=== PATIENT | female | born 1930 | race Caucasian/White ===

== ENCOUNTER 2018-09-05 01:36 | Inpatient (IN) | payer OTHER ==
[~2018-09-05] VITALS: Ht 154.9 cm; Wt 63.5 kg
[2018-09-05] VITALS (8 sets, daily range): BP systolic 93–146; BP diastolic 50–97
--- NOTE | ~2018-09-05 | 2DMMODE ---
[facility] [address] [place] [address] 2 D/M-MODE ECHOCARDIOGRAM Name: DIAMOND ARNDT Room #: 350-P ADM IN M.R.#: [id number] Admission: 09/05/18 Attend Phys: Carlos Pereyra Discharge: Date of : [birth year] Date of Service: 09/06/18 1256 Report #: [id number] THIS REPORT FOR: //name// APPROVED REPORT Study performed: 09/06/2018 10:08:12 EXAM: Comprehensive 2D, Doppler, and color-flow Echocardiogram Patient Location: In-Patient Room #: 350 Status: routine BSA: 1.60 HR: 80 bpm BP: 128/71 mmHg Rhythm: NSR Other Information Study Quality: Good Risk Factors: Cardiac Risk Factors: SOB Indications Dyspnea Cardiomyopathy Pulmonary Edema 2D Dimensions RVDd: 44.43 mm IVSd: 13.27 (7-11mm) LVOT Diam: 19.17 (18-24mm) LVDd: 52.05 mm PWd: 12.64 (7-11mm) LVDs: 45.57 (25-40mm) Aortic Root: 25.46 mm IVC: 22.00 mm Volumes Left Atrial Volume (Systole) Single Plane 4CH: 110.07 mL Single Plane 2CH: 67.63 mL LA ESV Index: 59.00 mL/m2 Aortic Valve AoV Peak Unruly.: 1.43 m/s AO Peak Gr.: 8.20 mmHg LVOT Max P.46 mmHg LVOT Max V: 1.06 m/s ADOLFO Vmax: 2.13 cm2 [facility] [address] [place] [address] 2 D/M-MODE ECHOCARDIOGRAM Name: DIAMOND ARNDT Room #: 350-P [facility] IN [facility].#: [id number] Admission: 09/05/18 Attend Phys: Carlos Pereyra Discharge: Date of : [birth year] Date of Service: 09/06/18 1256 Report #: [id number] Vmax: 3.90 m/s AI [place]: 2.38 m/s2 AI PHT: 474.03 ms Mitral Valve E/A Ratio: 1.1 MV Decel. Time: 199.90 ms MV E Max Unruly.: 0.68 m/s MV A Unruly.: 0.63 m/s MV PHT: 57.97 ms IVRT: 87.66 ms Pulmonary Valve PV Peak Unruly.: 1.04 m/s PV Peak Gr.: 4.42 mmHg Pulmonary Vein P Vein S: 0.40 m/s P Vein A: 0.24 m/s P Vein D: 0.23 m/s P Vein A Dur.: 101.5 msec P Vein S/D Ratio: 1.74 Tricuspid Valve TR Peak Unruly.: 2.89 m/s TR Peak Gr.: 33.37 mmHg Left Ventricle Left ventricle is at the upper limits of normal. There is global hypokinesis of the left ventricle. Mild concentric left ventricular hypertrophy. Left ventricular systolic function is mildly decreased. LVEF is 40%. Grade II - pseudonormal filling dynamics. Right Ventricle Right ventricle is mildly dilated. The right ventricular systolic function is normal. Atria Left atrium is severely dilated. Right atrium is severely dilated. Aortic Valve Aortic valve is calcified. Moderate aortic regurgitation. There is no aortic valvular stenosis. Mitral Valve Mitral valve leaflets are mildly thickened. Mild mitral regurgitation. No evidence of mitral valve stenosis. [facility] [address] [place] [address] 2 D/M-MODE ECHOCARDIOGRAM Name: DIAMOND ARNDT Room #: 350-P [facility] IN .R.#: [id number] Admission: 09/05/18 Attend Phys: Carlos Pereyra Discharge: Date of : [birth year] Date of Service: 09/06/18 1256 Report #: [id number] Tricuspid Valve The tricuspid valve is normal in structure. Moderate tricuspid regurgitation. Estimated PAP 43-48 mmHg. Pulmonic Valve The pulmonary valve is normal in structure. Mild pulmonic regurgitation. Great Vessels The aortic root is normal in size. IVC is mildly dilated. Pericardium There is no pericardial effusion. <Conclusion> Left ventricle is at the upper limits of normal. Mild concentric left ventricular hypertrophy. There is global hypokinesis of the left ventricle. LVEF is 40%. Grade II - pseudonormal filling dynamics. Right ventricle is mildly dilated. Left atrium is severely dilated. Right atrium is severely dilated. There is no aortic valvular stenosis. Moderate aortic regurgitation. Mild mitral regurgitation. Mild pulmonic regurgitation. IVC is mildly dilated. <ELECTRONICALLY SIGNED> By: Ryan Bergeron MD, FACC 09/06/18 1256 1256 1256 Ryan Bergeron MD, FACC /INF
--- NOTE | ~2018-09-05 | HC ---
[facility] [place] [address] CONSULTATION Name: HAIRDIAMOND KING Room #: 350-P ADM IN M.R.#: [id number] Admission: 09/05/18 Attend Phys: Carlos Soria Discharge: Date of : 07/23/[birth year] Report #: [id number] THIS REPORT FOR: //name// CC: Carlos Jane DATE OF SERVICE: 09/06/2018 HISTORY OF PRESENT ILLNESS: The patient is an 88-year-old white female who I was asked to see in the hospital today after she had evidence of myocardial infarction. The history is obtained from the patient. There is minimal old record available. The patient stays fairly active, going to the gym almost every day. She does not require a cane or walker. She states that couple of years ago, her primary care physician noticed that she was having an extra heartbeat. She was referred to my partner, Dr. Bergeron in the Cardiology Clinic in [place], [place]. She apparently underwent a pharmacologic nuclear stress test at [facility]. She was told there was "no evidence of blockage." She notes that Dr. Bergeron did not change any of her medications or recommended additional cardiac evaluation. She states she actually just saw Dr. Bergeron couple of months ago. She was doing well until last week, she and her flu by airplane to [place] for Thanksgiving. She then returned 4 days ago. She initially felt well. However, 2 days ago, she went to sleep and then awakened coughing up phlegm. She had a chill, felt nauseous, vomited. She was brought by ambulance to [facility] 2 nights ago. She was felt to have pneumonia. Her troponin was elevated consistent with non-STEMI. I was asked to see her. She denied any chest pain, jaw pain, arm pain, palpitations, syncope. She has had no recent leg pain. PAST MEDICAL HISTORY: Significant for back surgery, cataract extraction, hypertension, hyperlipidemia. There is no history of diabetes. MEDICATIONS: Include lisinopril, carvedilol, pravastatin, Zyrtec. ALLERGIES: She has no known drug allergies. FAMILY HISTORY: Negative for heart disease. SOCIAL HISTORY: She is . She and her live [place], [place]. No smoking or alcohol abuse. REVIEW OF SYSTEMS: She has had no history of stroke. She does have seasonal allergies. No history of peptic ulcer disease, liver disease, kidney disease, cancer or psychiatric illness, chronic skin condition. [facility] [address] [place] [address] CONSULTATION Name: DIAMOND ARNDT CHRISTINE Room #: 350-P [facility] IN M.R.#: [id number] Admission: 09/05/18 Attend Phys: Carlos Soria Discharge: Date of : 07/[birth year] Report #: [id number] PHYSICAL EXAMINATION: GENERAL: Revealed an elderly frail-appearing female, lying in bed. She appeared in no distress. VITAL SIGNS: She had a blood pressure of 130/70, pulse was 80, she was afebrile. HEENT: She was anicteric, conjunctivae pink. Mucous membranes appeared dry. NECK: Veins did not appear distended. CHEST: Revealed basilar crackles. CARDIAC: Regular rate and rhythm without murmur. ABDOMEN: Soft. EXTREMITIES: Had no edema, no Homans' sign. Dorsalis pedis pulse could not be palpated. SKIN: Cool and dry. NEUROLOGIC: Nonfocal. LYMPH: No adenopathy. MUSCULOSKELETAL: No joint effusion. LABORATORY DATA: Her ECG on admission showed sinus tachycardia with nonspecific ST and T-wave changes. There were Q-waves in V1, V2 and V3 suggestive of previous anterior infarction. Her workup so far, she had a chest x-ray on admission that showed mild cardiomegaly, bilateral infiltrates, small effusions, mild vascular congestion, possible mass in the right lower lobe. She had a CT scan of the chest using a PE protocol that showed no evidence of pulmonary embolus, bilateral infiltrates suggestive of bilateral multilobar pneumonia, evidence of goiter. Her lab work: Sodium 141, BUN 23, creatinine 1.3. Liver function studies were normal. Troponin on admission was 0.21, this morning it is 3.3. BNP 2702. White blood cell count 16.8, hemoglobin 13.6, 82% segmented neutrophils. TSH 2.6. Hemoglobin A1c 5.6. Urinalysis positive for protein, few wbc's, many bacteria. IMPRESSION AND RECOMMENDATIONS: 1. Non-ST elevation myocardial infarction. No history of angina. In light of her advanced age, I would recommend a conservative approach. I would not recommend stress testing, nor cardiac catheterization. In addition to aspirin, I would add Plavix. The patient is on a beta daniel and statin drug. 2. Evidence of previous anterior infarction. The patient is on an SAFIA inhibitor and beta daniel. I will attempt to obtain the old records. 3. Episode of nonsustained ventricular tachycardia. The patient was noted to have a 6-beat run of nonsustained ventricular tachycardia. I would not treat at this time. 4. History of hypertension. The patient is on a beta daniel and SAFIA inhibitor. [facility] [address] [place] [address] CONSULTATION Name: DIAMOND ARNDT Room #: 350-P ADM IN M.R.#: [id number] Admission: 09/05/18 Attend Phys: Carlos Soria Discharge: Date of : [birth year] Report #: [id number] 5. Hyperlipidemia. The patient is on a statin drug. 6. Pneumonia. The patient on antibiotics. <ELECTRONICALLY SIGNED> By: Travon Saravia MD, FACC 09/10/18 1408 0804 1015 Travon Saravia MD, FACC /nt
--- NOTE | ~2018-09-05 | EKG ---
[address] [place] [address] ELECTROCARDIOGRAM REPORT Name: DIAMOND ARNDT Room #: 350-P ADM IN M.R.#: [id number] Admission: 09/05/18 Attend Phys: Carlos Soria Discharge: Date of : [birth year] Report #: [id number] THIS REPORT FOR: //name// [facility] ED Test Date: 2018-09-05 Test Time: 01:45:41 Pat Name: DIAMOND ARNDT Department: Room: 350 Gender: F Four Slide Machine Operator: TK : 1930 Requested By: Zak Ghosh Order Number: [id number] MD: Gama Hernandez Measurements Intervals [place] Rate: 119 P: 68 PA: 154 QRS: -8 QRSD: 84 T: 107 QT: 327 QTc: 461 Interpretive Statements Sinus tachycardia Anterior infarct, old Nonspecific repol abnormality, lateral leads No previous ECG available for comparison Electronically Signed On 09-05-2018 8:56:13 SALES AND SERVICE REPRESENTATIVE by Gama Hernandez [email or web address] <ELECTRONICALLY SIGNED> By: Gama Hernandez MD, [facility] 09/05/18 0856 0145 0145 Gama Hernandez MD, FACC /EPI
[2018-09-05 02:06] LABS: ABSOLUTE NEUTROPHILS 14.4 thou/uL (1.4-8.2); BASOPHILS 0.8 % (0.0-2.0); EOSINOPHILS 1.1 % (0.0-3.0); HEMATOCRIT 41.5 % (37.0-47.0); HEMOGLOBIN 13.6 gm/dL (12.0-15.0); LYMPHOCYTES 13.8 % (24.0-44.0); MCH 28.9 pg (26.0-34.0); MCHC 32.7 g/dL (28.0-37.0); MCV 88.3 fL (80.0-100.0); MONOCYTES 2.2 % (1.0-8.0); PLATELET COUNT 243 thou/uL (150-400); POLYS 82.1 % (36.0-66.0); RDW 13.8 % (10.5-14.5); WBC 17.5 thou/uL (4.0-11.0)
[2018-09-05 02:07] LABS: CALCIUM 8.7 mg/dL (8.5-10.1); CREATININE 1.2 mg/dL (0.6-1.0); POTASSIUM 4.3 mmol/L (3.5-5.1)
[2018-09-05 02:07] LABS: BE(vivo) -6.3 mmol/L (-2 to +3); HCO3 18.1 mmol/L (22.0-26.0); PCO2 33.2 mmHg (35.0-45.0); PO2 65.9 mmHg (80.0-100.0); pH 7.355 (7.360-7.450); sO2 92.5 % (92.0-98.0)
[2018-09-05 02:11] LABS: URINE BILIRUBIN NEGATIVE (Negative); URINE BLOOD 1+ (Negative); URINE CLARITY CLOUDY; URINE COLOR YELLOW; URINE GLUCOSE-RANDOM* 2+ (Negative); URINE KETONES NEGATIVE (Negative); URINE LEUKOCYTES-REFLEX NEGATIVE (Negative); URINE NITRITE-REFLEX NEGATIVE (Negative); URINE PROTEIN (DIPSTICK) 1+ (Negative); URINE SPECIFIC GRAVITY >= 1.030 (1.005-1.035); URINE UROBILINOGEN 0.2 E.U./dl (0.2-1.0)
[2018-09-05 02:15] LABS: ALBUMIN 3.2 g/dL (3.4-5.0); MAGNESIUM 1.7 mg/dL (1.8-2.4); TOTAL BILIRUBIN 0.7 mg/dL (<0.1-1.0); TOTAL PROTEIN 6.7 g/dL (6.4-8.2); TROPONIN-I 0.21 ng/mL (<0.06)
[2018-09-05 02:30] LABS: HYALINE CASTS 0-3 Few /LPF (None Seen)
[2018-09-05 02:33] LABS: MUCUS 0-3 Light strn/LPF (None Seen); SQUAMOUS 0-3 Few /LPF (0-3); URINE WBC-REFLEX 6-15 Few /HPF (0-5)
[2018-09-05 02:34] LABS: BACTERIA-REFLEX >30 Many /HPF (None Seen); CRYSTALS None Seen /LPF (None Seen); URINE RBC 3-10 Few /HPF (0-2)
[2018-09-05] MEDS ORDERED: CARVEDILOL12.5 MG PO (02:39)
[2018-09-05] MEDS ORDERED: LISINOPRIL10 MG PO (02:39)
[2018-09-05] MEDS ORDERED: PRAVACHOL20 MG PO (02:40)
[2018-09-05] MEDS ORDERED: METHIMAZOLE5 MG PO (02:40)
[2018-09-05] MEDS ORDERED: CENTRUM SILVER1 EAC2 PO (02:41)
[2018-09-05] MEDS ORDERED: ZYRTEC10 M5 PO (02:41)
[2018-09-05] MEDS ORDERED: BECONASE AQ25 GM (02:41)
[2018-09-05 02:48] LABS: INR 1.1
[2018-09-05 02:56] LABS: D-DIMER 8.6 ug/mLFEU (0.19-0.50)
[2018-09-05 20:06] LABS: GLYCOHEMOGLOBIN (HGB A1C) 5.6 % (4.8-5.6)
[2018-09-06 04:33] VITALS: BP 105/51
[2018-09-06 06:20] LABS: HEMATOCRIT 33.3 % (37.0-47.0); MCH 28.6 pg (26.0-34.0); MCHC 32.6 g/dL (28.0-37.0); MCV 87.9 fL (80.0-100.0); RBC 3.79 mil/uL (4.20-5.00); WBC 16.8 thou/uL (4.0-11.0)
[2018-09-06 06:31] LABS: HEMOGLOBIN 10.8 gm/dL (12.0-15.0)
[2018-09-06 06:44] LABS: CALCIUM 8.1 mg/dL (8.5-10.1); CREATININE 1.3 mg/dL (0.6-1.0); POTASSIUM 3.9 mmol/L (3.5-5.1)
[2018-09-06 07:36] VITALS: BP 128/71
[2018-09-06 11:35] VITALS: BP 122/67
[2018-09-06 16:08] VITALS: BP 134/76
[2018-09-06 19:03] VITALS: BP 128/70
[2018-09-07 04:17] VITALS: BP 141/78
[2018-09-07 06:43] LABS: ALBUMIN 2.5 g/dL (3.4-5.0); ANION GAP 11 mmol/L (7-16); BUN 35 mg/dL (7-18); CALCIUM 8.4 mg/dL (8.5-10.1); CHLORIDE 106 mmol/L (98-107); CHOLESTEROL 161 mg/dL (<200); CO2 25 mmol/L (21-32); CREATININE 1.3 mg/dL (0.6-1.0); GLUCOSE 136 mg/dL (74-106); HDL CHOLESTEROL 40 mg/dL (>40); LDL CHOLESTEROL 102 mg/dL (<100); PHOSPHORUS 3.4 mg/dL (2.5-4.9); POTASSIUM 3.8 mmol/L (3.5-5.1); SODIUM 142 mmol/L (136-145); TRIGLYCERIDE 95 mg/dL (<150); VLDL 19 mg/dL (<40)
[2018-09-07 06:48] LABS: TROPONIN-I 1.41 ng/mL (<0.06)
[2018-09-07 07:19] VITALS: BP 142/77
[2018-09-07 11:29] VITALS: BP 121/76
[2018-09-07 19:10] VITALS: BP 121/66
[2018-09-08 04:05] VITALS: BP 148/82
[2018-09-08 06:42] LABS: ALBUMIN 2.5 g/dL (3.4-5.0); CALCIUM 8.3 mg/dL (8.5-10.1); CREATININE 1.2 mg/dL (0.6-1.0); MAGNESIUM 1.8 mg/dL (1.8-2.4); POTASSIUM 3.2 mmol/L (3.5-5.1)
[2018-09-08 07:35] VITALS: BP 168/94
[2018-09-08 08:37] LABS: FOLIC ACID 32.4 ng/mL (8.6-58.9)
[2018-09-08 12:36] LABS: HEMATOCRIT 35.4 % (37.0-47.0); HEMOGLOBIN 11.8 gm/dL (12.0-15.0); MCH 29.4 pg (26.0-34.0); MCHC 33.3 g/dL (28.0-37.0); MCV 88.2 fL (80.0-100.0); RBC 4.01 mil/uL (4.20-5.00); RDW 14.5 % (10.5-14.5); WBC 11.6 thou/uL (4.0-11.0)
[2018-09-08 12:43] VITALS: BP 140/77
[2018-09-08 16:39] VITALS: BP 156/90
[2018-09-08 19:24] VITALS: BP 142/80
[2018-09-09 03:16] VITALS: BP 144/84
[2018-09-09 05:34] LABS: HEMOGLOBIN 12.4 gm/dL (12.0-15.0); MCH 29.5 pg (26.0-34.0); MCHC 33.6 g/dL (28.0-37.0); MCV 87.7 fL (80.0-100.0); RBC 4.22 mil/uL (4.20-5.00); RDW 14.2 % (10.5-14.5); WBC 10.2 thou/uL (4.0-11.0)
[2018-09-09 05:40] LABS: CALCIUM 8.5 mg/dL (8.5-10.1); CREATININE 1.1 mg/dL (0.6-1.0); POTASSIUM 3.5 mmol/L (3.5-5.1)
[2018-09-09 07:21] VITALS: BP 147/83
[2018-09-09] MEDS ORDERED: AUGMENTIN 400-1 EACH PO (09:07)
[2018-09-09] MEDS ORDERED: CLOPIDOGREL75 MG PO (09:08)
[2018-09-09 11:59] VITALS: BP 121/72
[2018-09-09 19:08] VITALS: BP 131/70
[2018-09-10 04:57] VITALS: BP 145/81
[2018-09-10 06:12] LABS: ALBUMIN 2.6 g/dL (3.4-5.0); CALCIUM 8.5 mg/dL (8.5-10.1); MAGNESIUM 1.8 mg/dL (1.8-2.4); PHOSPHORUS 3.5 mg/dL (2.5-4.9); POTASSIUM 4.1 mmol/L (3.5-5.1)
[2018-09-10 07:25] VITALS: BP 150/80
[2018-09-10 11:09] VITALS: BP 146/78
[2018-09-10 14:36] VITALS: BP 146/78
[2018-09-10 14:55] VITALS: BP 146/78
== END 2018-09-10 15:51 | disposition home or self-care (01) | DRG 871 ==
LOC: ER 01:36 → 3W 02:38 → EROBS 02:38 → 3W 03:33
PROVIDERS: Emergency Medicine; Hospitalist; Internal Medicine; Internal Medicine Cardiovascular Disease; Nurse Practitioner Family
DX: A41.9 Sepsis, unspecified organism (principal); I21.4 Non-ST elevation (NSTEMI) myocardial infarction; J69.0 Pneumonitis due to inhalation of food and vomit; I42.9 Cardiomyopathy, unspecified; N18.4 Chronic kidney disease, stage 4 (severe); E46 Unspecified protein-calorie malnutrition; I47.1 Supraventricular tachycardia; R73.9 Hyperglycemia, unspecified; E78.5 Hyperlipidemia, unspecified; E05.90 Thyrotoxicosis, unspecified without thyrotoxic crisis or storm; I12.9 Hypertensive chronic kidney disease with stage 1 through stage 4 chronic kidney disease, or unspecified chronic kidney disease; E87.6 Hypokalemia; J30.2 Other seasonal allergic rhinitis; E55.9 Vitamin D deficiency, unspecified; E78.00 Pure hypercholesterolemia, unspecified; J30.9 Allergic rhinitis, unspecified; Z68.26 Body mass index [BMI] 26.0-26.9, adult; Z98.49 Cataract extraction status, unspecified eye; Z88.1 Allergy status to other antibiotic agents; I25.2 Old myocardial infarction; Z79.82 Long term (current) use of aspirin; Z79.899 Other long term (current) drug therapy
CPT/HCPCS: 10879

== ENCOUNTER 2018-10-18 10:43 | Inpatient (IN) | payer OTHER ==
[~2018-10-18] VITALS: Ht 154.9 cm; Wt 62.6 kg
[~2018-10-18 10:43] MED LIST: AUGMENTIN 400-1 EACH PO; BECONASE AQ25 GM; CARVEDILOL12.5 MG PO; CENTRUM SILVER1 EAC2 PO; CLOPIDOGREL75 MG PO; LISINOPRIL10 MG PO; METHIMAZOLE5 MG PO; PRAVACHOL20 MG PO; ZYRTEC10 M4 PO
[2018-10-18 10:51] VITALS: BP 143/49
[2018-10-18 13:07] LABS: ABSOLUTE NEUTROPHILS 8.2 thou/uL (1.4-8.2); BASOPHILS 0.5 % (0.0-2.0); EOSINOPHILS 1.3 % (0.0-3.0); HEMATOCRIT 39.8 % (37.0-47.0); HEMOGLOBIN 13.1 gm/dL (12.0-15.0); LYMPHOCYTES 13.7 % (24.0-44.0); MCH 29.5 pg (26.0-34.0); MCV 89.5 fL (80.0-100.0); MONOCYTES 4.3 % (1.0-8.0); PLATELET COUNT 200 thou/uL (150-400); POLYS 80.2 % (36.0-66.0); RBC 4.45 mil/uL (4.20-5.00); RDW 15.2 % (10.5-14.5); WBC 10.2 thou/uL (4.0-11.0)
[2018-10-18 13:15] LABS: ANION GAP 8 mmol/L (7-16); BUN 24 mg/dL (7-18); CALCIUM 9.1 mg/dL (8.5-10.1); CHLORIDE 107 mmol/L (98-107); CO2 24 mmol/L (21-32); CREATININE 1.3 mg/dL (0.6-1.0); GLUCOSE 120 mg/dL (74-106); POTASSIUM 4.7 mmol/L (3.5-5.1); SODIUM 139 mmol/L (136-145)
[2018-10-18] MEDS ORDERED: PACERONE 200 M200 M1 PO (13:24)
[2018-10-18] MEDS ORDERED: NITROGLYCERIN0.4 MG SUBLING (13:25)
[2018-10-18] MEDS ORDERED: PLAVIX 75 MG TA75 M1 PO (13:25)
[2018-10-18] MEDS ORDERED: SPIRONOLACTONE25 M1 PO (13:26)
[2018-10-18] MEDS ORDERED: FOSAMAX 70 MG T70 MG PO (13:26)
[2018-10-18] MEDS ORDERED: ASPIR-TRIN325 MG PO (13:28)
[2018-10-18 14:58] LABS: TROPONIN-I <0.06 ng/mL (<0.06)
[2018-10-18 16:57] VITALS: BP 146/84
[2018-10-18 17:08] VITALS: BP 144/62
[2018-10-18 20:02] VITALS: BP 151/56
[2018-10-18 20:08] VITALS: BP 186/58
[2018-10-19 04:58] VITALS: BP 130/46
--- NOTE | 2018-10-19 05:30 | NUR ---
ASSUMED CARE AT 1900, ADMISSION AND ASSESSMENT COMPLETED. PT REPORTS MILD PAIN IN LEFT ELBOW AND CHRONIC LOW BACK PAIN. DENIES NAUSEA OR SOB. SCD'S ON. CALLS APPROPRIATELY TO GET UP R/T MULTIPLE TUBES/LINES. HAVE GIVEN TYLENOL ONCE OVERNIGHT. NPO AT 0000 FOR SURGICAL REPAIR OF FRACTURE THIS AM. NO OTHER CONCERNS, WILL CONTINUE TO MONITOR.
[2018-10-19 05:43] LABS: BASOPHILS 0.5 % (0.0-2.0); EOSINOPHILS 1.9 % (0.0-3.0); HEMATOCRIT 31.7 % (37.0-47.0); LYMPHOCYTES 18.7 % (24.0-44.0); MCH 29.3 pg (26.0-34.0); MCHC 33.1 g/dL (28.0-37.0); MCV 88.6 fL (80.0-100.0); MONOCYTES 8.9 % (1.0-8.0); PLATELET COUNT 164 thou/uL (150-400); RBC 3.58 mil/uL (4.20-5.00); RDW 14.6 % (10.5-14.5); WBC 7.2 thou/uL (4.0-11.0)
[2018-10-19 05:44] LABS: HEMOGLOBIN 10.5 gm/dL (12.0-15.0)
[2018-10-19 05:54] LABS: CALCIUM 8.2 mg/dL (8.5-10.1); CREATININE 1.1 mg/dL (0.6-1.0); MAGNESIUM 1.8 mg/dL (1.8-2.4); POTASSIUM 4.4 mmol/L (3.5-5.1)
[2018-10-19 06:09] LABS: T4 (THYROXINE) 10.2 ug/dL (4.5-12.0)
[2018-10-19 08:00] VITALS: BP 154/38
--- NOTE | 2018-10-19 08:01 | HC ---
[facility] [place] [address] CONSULTATION Name: HAIRDIAMOND LEE Room #: 432-P ADM IN M.R.#: [id number] Admission: 10/18/18 Attend Phys: Humphrey Bonilla MD Discharge: Date of : [birth year] Report #: [id number] THIS REPORT FOR: //name// CC: Humphrey Jane DATE OF SERVICE: 10/18/2018 CHIEF COMPLAINT: Left elbow olecranon fracture and skin laceration. HISTORY OF PRESENT ILLNESS: This active, independent 88-year-old female, lives in her own home. She was descending stairs and fell awkwardly injuring the left elbow. X-rays in the Emergency Department revealed a displaced fracture of the left olecranon. She was found to have a superficial skin laceration as well. She had no other injuries. She was admitted for further evaluation and treatment. PHYSICAL EXAMINATION: At the time of my evaluation, she is alert and oriented and seems perfectly comfortable. She is eating her dinner and seems to be quite younger than her stated age. She states she has no other injuries aside from the left elbow, which is only mildly uncomfortable. Neck and back seemed to be normal. She has good movement and strength in the right upper extremity. The lower extremities appeared to be normal. There is no evidence of injuries to the pelvis, hips or knees. The left upper extremity is well protected in a well-padded long arm splint and arm sling. She has good movement of the digits and neurologic and vascular status appeared to be normal. The elbow is immobilized and unavailable for review. X-rays of the left elbow revealed a fracture of the proximal ulna extending into the joint with complete displacement of the olecranon. IMPRESSION AND PLAN: Left elbow olecranon fracture. I have discussed this with the patient and feel surgical repair with fixation is most appropriate. We will plan to proceed tomorrow pending OR availability. <ELECTRONICALLY SIGNED> By: Travon Centeno MD 10/19/18 0801 1812 0323 Travon Centeno MD /nt
--- NOTE | 2018-10-19 08:06 | EKG ---
[address] [address] ELECTROCARDIOGRAM REPORT Name: DIAMOND ARNDT Room #: 432-P ADM IN M.R.#: [id number] Admission: 10/18/18 Attend Phys: Humphrey Bonilla MD Discharge: Date of : [birth year] Report #: [id number] THIS REPORT FOR: //name// [facility] Test Date: 2018-10-18 Test Time: 22:17:46 Pat Name: DIAMOND ARNDT Department: Room: [facility] Gender: F Applications Manager: JACKIE : 1930 Requested By: Shila Ayala Order Number: [id number] MD: Abdelrahman Antunez Measurements Intervals [place] Rate: 69 P: -85 GA: 132 QRS: 7 QRSD: 92 T: 47 QT: 473 QTc: 507 Interpretive Statements Low ectopic atrial rhythm with PACs. Borderline low voltage, extremity leads Probable LVH with secondary repol abnrm Compared to ECG 09/05/2018 01:45:41 Myocardial infarct finding no longer present Electronically Signed On 10-19-2018 8:06:00 TUBE WASHER by Abdelrahman Antunez [email or web address] <ELECTRONICALLY SIGNED> By: Abdelrahman Antunez MD 10/19/18 0806 2217 2217 Abdelrahman Antunez MD /EPI
[2018-10-19 11:31] VITALS: BP 154/38
[2018-10-19 12:00] VITALS: BP 118/52
[2018-10-19 14:53] VITALS: BP 123/56
--- NOTE | 2018-10-19 15:11 | NUR ---
PT WAS TRANSFERRED FROM TO START TELEMETRY. AXOX4. PLEASANT. LUE WITH SLING. SEEN BY AND JODEE JAMESON AT [facility]. ICEPACK APPLIED PER ROD HANGER ORDER. SURGERY WILL BE DONE TOMORROW PER ORTHO. PT WILL BE NPO AFTER MIDNIGHT. NO S/S ACUTE DISTRESS NOTED OR REPORTED AT THIS TIME. WILL CONT TO MONITOR ANY CHANGES IN CONDITION.
--- NOTE | 2018-10-19 15:13 | NUR ---
PT ADMITTED RELATED TO FALL, L ELBOW FRACTURE. CM REVIEWED CHART AND SPOKE WITH CARE TEAM. CM MET WITH PT AT BEDSIDE THIS DAY. PT IS A&O X4. CM ROLE INTRODUCED. PT INDICATED SHE LIVES IN A HOUSE WITH HER SPOUSE WITH 1 STEP TO ENTER AND NO STEPS INSIDE. PT INDICATED SHE HAD BEEN INDEPENDENT AND ACTIVE PT AND HADN'T USED ANY ASSISTIVE DEVICES. PT INDICATED NO HH OR DME HX. PT INDICATED SHE PLANS TO RETURN HOME ONCE MEDICALLY STABLE. CM TO FOLLOW INDICATED WIHT DC PLANNING.
--- NOTE | 2018-10-19 15:45 | NUR ---
PATIENT HAD SURGERY THIS DATE. WILL HOLD OT EVALUATION AND PLAN TO EVAL TOMORROW AFTER CLAIR[place]ON OF ANY POST SURGERY PRECAUTIONS, WEIGHT BEARING STATUS AND MOVEMENT LIMITATIONS.
[2018-10-19 19:12] VITALS: BP 126/54
--- NOTE | 2018-10-19 21:40 | NUR ---
Assumed care at 1845. Pt is resting in bed. She was a little anxious about the surgery. Calmed her down. She excited to know she was going to have surgery first. Call light within reach. Bed in lowest position. Will continue to monitor.
[2018-10-20] VITALS (7 sets, daily range): BP systolic 108–201; BP diastolic 42–58
--- NOTE | 2018-10-20 12:42 | HC ---
[facility] [place] [address] CONSULTATION Name: DIAMOND ARNDT Room #: 456-P ADM IN M.R.#: [id number] Admission: 10/18/18 Attend Phys: Humphrey Bonilla MD Discharge: Date of : [birth year] Report #: [id number] THIS REPORT FOR: //name// CC: Humphrey Jane DATE OF SERVICE: 10/19/2018 PRIMARY CARE PHYSICIAN: Dr. Vicki Jane. CHIEF COMPLAINT: Preop evaluation. HISTORY OF PRESENT ILLNESS: The patient is an 88-year-old female who fractured her left olecranon after tripping on her sewing machine and falling. Her great granddaughters are due for their pardeep, and she was making a dress. She fortunately did not hit her head, she has a history of recent non-STEMI, which has been managed medically and had been on aspirin and Plavix. Her last dose was yesterday. We are asked to see her in preoperative evaluation. Clinically, she has been doing fairly well despite only medical therapy for her coronary artery disease. She had been exercising regularly for 20-30 minutes daily with walking and not been having chest pain, pressure, shortness of breath. Although she has LV dysfunction, she has not had any orthopnea, PND or edema complaints. She presents in sinus rhythm with no acute ST segment abnormalities. PAST MEDICAL HISTORY: Non-STEMI, 09/05/2018. Echocardiogram: EF 40%, global hypokinesis, diastolic dysfunction, moderate aortic regurgitation. No aortic stenosis, mild mitral regurgitation. Chronic kidney disease, history of community-acquired pneumonia, hyperglycemia, hypertension, hyperthyroidism. SOCIAL HISTORY: Nonsmoker. Rarely drinks. HOME MEDICATIONS: Coreg 12.5 mg p.o. b.i.d., Pravachol 20 mg every other day, cetirizine, amiodarone 200 mg p.o. b.i.d., Plavix 75 mg daily, Aldactone 12.5 mg daily, aspirin 325 mg daily, Plavix 75 mg daily, lisinopril 10 mg daily, multivitamin. REVIEW OF SYSTEMS: GENERAL: No fevers or chills. PULMONARY: No wheezing or cough. CARDIOVASCULAR: Positive dyspnea with exertion, mild, not worsening. No chest pain. No palpitation, no shortness of breath. GASTROINTESTINAL: No hematemesis or melena. GENITOURINARY: No bleeding. [address] [address] CONSULTATION Name: LATIA ARNDTSALUD KING Room #: 456-P [facility] IN ..#: [id number] Admission: 10/18/18 Attend Phys: Humphrey Bonilla MD Discharge: Date of : 07/23/[birth year] Report #: [id number] MUSCULOSKELETAL: Positive for fall. NEUROLOGIC: Denies dizziness, weakness or lightheadedness. Denies headaches. EYES: Denies any blurred vision or loss of vision. THROAT: Denies any dysphagia. PHYSICAL EXAMINATION: VITAL SIGNS: Blood pressure is 130/46, pulse 58, temperature is 36.7. GENERAL: She is a pleasant elderly female. She is alert, no apparent distress. NECK: Supple. No jugular venous distention. CARDIOVASCULAR: Regular. I could not hear a murmur or S3. LUNGS: Clear to auscultation. ABDOMEN: Soft, nontender. EXTREMITIES: There is no peripheral edema. NEUROLOGIC: No focal deficits. SKIN: Warm and dry. LABORATORY DATA: Electrocardiogram shows an ectopic atrial rhythm with nonspecific T-wave flattening with normal ST segments. Hemoglobin is 10.5, platelets are 164,000. Sodium is 143, potassium is 4.4, chloride 109, CO2 is 25, BUN is 22, creatinine is 1.1. Troponin I is 0.06. Elbow x-ray shows acute displaced comminuted fracture through the olecranon, 1.5 cm, displacement. Chest x-ray shows chronic interstitial lung disease. No effusions or pneumothorax. IMPRESSION: 1. Preoperative cardiovascular evaluation. Overall, this patient has had a recent non-ST elevation myocardial infarction without revascularization and had been doing well on medical therapy alone in regards to angina or heart failure. However, she remains high risk for this type of surgical procedure, but I do not see any contraindication to surgery. 2. Coronary artery disease. She is currently on dual antiplatelet therapy, which has been held for 48 hours. It may need to be held longer depending on operative preferences. Given that she has had a fall, I do not think I would continue with Plavix longer term and continue after surgery with only baby aspirin. 3. Cardiomyopathy, chronic systolic dysfunction. She is clinically compensated. I would resume her home medications. She should be on telemetry monitoring postoperatively if she is a full code. 4. Hypertension, stable on present therapy. 5. History of nonsustained ventricular tachycardia. We will continue with amiodarone. <ELECTRONICALLY SIGNED> By: Ryan Bergeron MD, FACC 10/20/18 1242 0839 0906 Ryan Bergeron MD, FACC /nt
--- NOTE | 2018-10-20 18:45 | NUR ---
PATIENT RETURNED TO ROOM FROM RECOVERY AT 1040. AWAKE, ALERT AND ORIENTED X 4. DENIED PAIN. PATIENT HAD A NERVE BLOCK IN SURGERY. LEFT ARM SPLINTED AND IN SLING. LEFT HAND AND FINGERS WARM, EDEMATOUS. GOOD CAPILLARY REFILL. VITAL SIGNS STABLE. VOIDING WITHOUT DIFFICULTY. PATIENT STATED SHE DOESN'T DRINK VERY MUCH SHE TAUGHT SCHOOL FOR 24 YEARS AND WAS UNABLE TO LEAVE HER STUDENTS TO GET A DRINK. ENCOURAGED FLUID INTAKE. IV FLUIDS CONTINUED. UP WITH MINIMAL ASSISTANCE TO BATHROOM. TOLERATING REGULAR DIET. FALL PRECAUTIONS IN PLACE. HAVE MONITORED CLOSELY. PLAN IS TO DISCHARGE TOMORROW MORNING AFTER LAST DOSE OF CEFAZOLIN.
[2018-10-21 03:28] VITALS: BP 140/47
--- NOTE | 2018-10-21 04:56 | NUR ---
ASSUMED CARE OF PT APPROX 1900HRS. PT A&O X4 ABLE TO MAKE BASIC NEEDS KNOWN. CALM AND COOPERATIVE. CHARMAINE POST SURGERY SPLINT/SAFIA WRAP IN PLACE CHARMAINE NOTE TO BE EDEMATOUS FINGERS ELEVATED ON A PILLOW IMPORVEMET NOTED PT ABLE TO WIGGLE FINGERS WITHOUT DIFFICULTY CAP REFILL LESS THAN 3 SECS CONT TO MONITOR. PT ON RA. SCDS ON BLE. NSR ON MONITOR
[2018-10-21 07:29] VITALS: BP 127/49
[2018-10-21 10:35] VITALS: BP 127/49
--- NOTE | 2018-10-26 07:35 | O ---
[facility] [place] [address] OPERATIVE REPORT Name: DIAMOND ARNDT Room #: 456-P [facility] IN M.R.#: [id number] Admission: 10/18/18 Attend Phys: Humphrey Bonilla MD Discharge: 10/21/18 Date of : [birth year] Report #: [id number] THIS REPORT FOR: //name// CC: Humphrey Jane DATE OF SERVICE: 10/20/2018 PREOPERATIVE DIAGNOSIS: Left olecranon fracture. POSTOPERATIVE DIAGNOSIS: Left olecranon fracture. PROCEDURE: Open reduction and internal fixation of left olecranon fracture. SURGEON: Travon Centeno M.D. INDICATIONS: This alert, fully independent 88-year-old female fell at home, injuring the left elbow. X-rays confirm a displaced unstable olecranon fracture. She has no other major injuries, but other areas of bruising. We have elected to go ahead with surgical repair. DESCRIPTION OF PROCEDURE: The patient was taken to the operating room, where she was placed under general anesthesia. Prophylactic intravenous antibiotics were administered. The left upper extremity was meticulously prepped and draped and an Esmarch bandage was used to exsanguinate the arm and left at the upper arm as a gentle tourniquet. A longitudinal skin incision was made exposing the olecranon. A displaced fracture was identified. The debris and clot was removed and the fracture was reduced anatomically. An Acumed olecranon fixation plate was selected. This was applied and then secured with one longitudinal screw, four locking screws proximally at the tip of the olecranon and 3 locking screws distally. These all seemed to have good purchase and alignment and stability of the fracture appeared to be excellent. The position of the fracture and screws was checked with C-arm and found to be satisfactory. The Esmarch tourniquet was removed. Good hemostasis was confirmed. The deeper tissues were closed with 2-0 Monocryl. The subcutaneous tissues were also closed with 2-0 Monocryl. The skin was closed with skin claudio. A sterile dressing was applied. The patient was awakened and returned to the recovery room in good condition. <ELECTRONICALLY SIGNED> By: Travon Centeno MD 10/26/18 0735 0946 1005 Travon Centeno MD /nt
== END 2018-10-21 11:30 | disposition home or self-care (01) | DRG 510 ==
LOC: ER 10:43 → 4E 13:09 → EROBS 13:09 → 4E 17:09 → 4W 10-19 12:00
PROVIDERS: Nurse Practitioner; Nurse Practitioner Family; ADMIT Internal Medicine
PROC: 2W39X1Z Immobilization of Left Upper Extremity using Splint (ICD-10-PCS; principal; 2018-10-18)
PROC: 0PSL04Z Reposition Left Ulna with Internal Fixation Device, Open Approach (ICD-10-PCS; 2018-10-20)
DX: S52.022A Displaced fracture of olecranon process without intraarticular extension of left ulna, initial encounter for closed fracture (principal); E43 Unspecified severe protein-calorie malnutrition; N17.9 Acute kidney failure, unspecified; I42.9 Cardiomyopathy, unspecified; I13.0 Hypertensive heart and chronic kidney disease with heart failure and stage 1 through stage 4 chronic kidney disease, or unspecified chronic kidney disease; E05.90 Thyrotoxicosis, unspecified without thyrotoxic crisis or storm; E78.00 Pure hypercholesterolemia, unspecified; I25.10 Atherosclerotic heart disease of native coronary artery without angina pectoris; E86.0 Dehydration; E78.5 Hyperlipidemia, unspecified; E53.8 Deficiency of other specified B group vitamins; I50.9 Heart failure, unspecified; M81.0 Age-related osteoporosis without current pathological fracture; N18.3 Chronic kidney disease, stage 3 (moderate); I25.2 Old myocardial infarction; Z88.8 Allergy status to other drugs, medicaments and biological substances; Z88.1 Allergy status to other antibiotic agents; Z98.49 Cataract extraction status, unspecified eye; Z47.89 Encounter for other orthopedic aftercare; W01.0XXA Fall on same level from slipping, tripping and stumbling without subsequent striking against object, initial encounter; Y93.89 Activity, other specified; Y92.89 Other specified places as the place of occurrence of the external cause; Y99.8 Other external cause status
CPT/HCPCS: 10045; 10084; 20050; 50010; 50101; 55430; 62110; 62900; 65060; 70005

== ENCOUNTER 2019-09-12 17:23 | Emergency (ER) | payer OTHER ==
[~2019-09-12] VITALS: Ht 154.9 cm; Wt 60.8 kg
[~2019-09-12 17:23] MED LIST changes: +ASPIR-TRIN325 MG PO; +FOSAMAX 70 MG T70 MG PO; +NITROGLYCERIN0.4 MG SUBLING; +PACERONE 200 M200 M1 PO; +PLAVIX 75 MG TA75 M1 PO; +SPIRONOLACTONE25 M1 PO
[2019-09-12] MEDS ORDERED: ELIQUIS2.5 MG PO (18:05)
[2019-09-12 18:31] LABS: BASOPHILS 0.7 % (0.0-2.0); EOSINOPHILS 1.8 % (0.0-3.0); HEMATOCRIT 39.7 % (37.0-47.0); HEMOGLOBIN 12.6 gm/dL (12.0-15.0); LYMPHOCYTES 20.5 % (24.0-44.0); MCH 29.2 pg (26.0-34.0); MCHC 31.9 g/dL (28.0-37.0); MCV 91.6 fL (80.0-100.0); MONOCYTES 6.8 % (1.0-8.0); PLATELET COUNT 243 thou/uL (150-400); POLYS 70.2 % (36.0-66.0); RBC 4.33 mil/uL (4.20-5.00); RDW 14.6 % (10.5-14.5); WBC 7.1 thou/uL (4.0-11.0)
[2019-09-12 18:39] LABS: ANION GAP 11 mmol/L (7-16); BUN 46 mg/dL (7-18); CALCIUM 9.5 mg/dL (8.5-10.1); CHLORIDE 108 mmol/L (98-107); CO2 23 mmol/L (21-32); CREATININE 2.4 mg/dL (0.6-1.0); GLUCOSE 113 mg/dL (74-106); POTASSIUM 5.1 mmol/L (3.5-5.1); SODIUM 142 mmol/L (136-145)
[2019-09-12 18:42] LABS: APTT 25.7 Seconds (24.5-32.8); INR 1.2; PROTIME 12.6 Seconds (9.3-11.4)
[2019-09-12 18:47] LABS: TROPONIN-I <0.06 ng/mL (<0.06)
[2019-09-12 22:30] VITALS: BP 101/63
--- NOTE | 2019-09-13 17:29 | EKG ---
[address] [address] ELECTROCARDIOGRAM REPORT Name: DIAMOND ARNDT Room #: DEP [facility]#: [id number] Admission: 09/12/19 Attend Phys: Discharge: 09/12/19 Date of : [birth year] Report #: [id number] THIS REPORT FOR: //name// [facility] ED Test Date: 2019-09-12 Test Time: 17:37:05 Pat Name: DIAMOND ARNDT Department: Room: Gender: F Card Tender: BAKARI : 1930 Requested By: Lisandra Tovar Order Number: [id number] MD: Gama Hernandez Measurements Intervals [place] Rate: 108 P: RI: QRS: -63 QRSD: 178 T: 108 QT: 445 QTc: 597 Interpretive Statements Atrial fibrillation Left bundle branch block Compared to ECG 10/18/2018 22:17:46 Left bundle-branch block now present Electronically Signed On 09-13-2019 17:29:16 VEGETABLE II FARMWORKER by Gama Hernandez [email or web address] <ELECTRONICALLY SIGNED> By: Gama Hernandez MD, [facility] 09/13/19 1729 1737 36 Gama Hernandez MD, FACC /EPI
== END 2019-09-12 22:32 | disposition home or self-care (01) ==
LOC: ER 17:23
PROVIDERS: Emergency Medicine
DX: R06.00 Dyspnea, unspecified (principal); I10 Essential (primary) hypertension; E78.00 Pure hypercholesterolemia, unspecified; Z88.1 Allergy status to other antibiotic agents; Z79.82 Long term (current) use of aspirin; Z79.899 Other long term (current) drug therapy; Z98.890 Other specified postprocedural states; Z87.01 Personal history of pneumonia (recurrent)

== ENCOUNTER 2019-10-17 15:09 | Emergency (ER) | payer OTHER ==
[~2019-10-17] VITALS: Ht 154.9 cm; Wt 62.1 kg
[~2019-10-17 15:09] MED LIST changes: +ELIQUIS2.5 MG PO
[2019-10-17 16:12] LABS: ABSOLUTE NEUTROPHILS 4.6 thou/uL (1.4-8.2); BASOPHILS 0.7 % (0.0-2.0); EOSINOPHILS 0.6 % (0.0-3.0); HEMATOCRIT 39.9 % (37.0-47.0); HEMOGLOBIN 12.5 gm/dL (12.0-15.0); LYMPHOCYTES 18.1 % (24.0-44.0); MCHC 31.4 g/dL (28.0-37.0); MCV 89.1 fL (80.0-100.0); MONOCYTES 6.2 % (1.0-8.0); PLATELET COUNT 223 thou/uL (150-400); POLYS 74.4 % (36.0-66.0); RBC 4.48 mil/uL (4.20-5.00); RDW 15.3 % (10.5-14.5); WBC 6.2 thou/uL (4.0-11.0)
[2019-10-17 16:17] LABS: ANION GAP 9 mmol/L (7-16); BUN 29 mg/dL (7-18); CALCIUM 9.2 mg/dL (8.5-10.1); CHLORIDE 106 mmol/L (98-107); CO2 23 mmol/L (21-32); CREATININE 1.8 mg/dL (0.6-1.0); GLUCOSE 118 mg/dL (74-106); POTASSIUM 4.8 mmol/L (3.5-5.1); SODIUM 138 mmol/L (136-145)
[2019-10-17 16:27] LABS: ALBUMIN 3.1 g/dL (3.4-5.0); DIRECT BILIRUBIN 0.3 mg/dL (<0.1-0.2); SGOT 15 U/L (15-37); SGPT 19 U/L (30-65); TOTAL BILIRUBIN 0.9 mg/dL (<0.1-1.0); TOTAL PROTEIN 6.5 g/dL (6.4-8.2); TROPONIN-I <0.06 ng/mL (<0.06)
[2019-10-17] MEDS ORDERED: LEVAQUIN 750 M750 MG PO (17:21)
[2019-10-17] MEDS ORDERED: ZOFRAN ODT4 MG PO (17:56)
[2019-10-17 17:58] VITALS: BP 114/76
--- NOTE | 2019-10-18 08:47 | EKG ---
[place] [address] [facility] [place] [address] ELECTROCARDIOGRAM REPORT Name: DIAMOND ARNDT Room #: [facility] [id number] Admission: 10/17/19 Attend Phys: Discharge: 10/17/19 Date of : [birth year] Report #: [id number] THIS REPORT FOR: //name// [facility] ED Test Date: 2019-10-17 Test Time: 15:18:42 Pat Name: DIAMOND ARNDT Department: Room: Gender: F Manager Psychology: ESHEETS : 1930 Requested By: Lisandra Tovar Order Number: [id number] MD: Gama Hernandez Measurements Intervals [place] Rate: 83 P: 0 MN: 41 QRS: -70 QRSD: 169 T: 110 QT: 461 QTc: 542 Interpretive Statements Atrial fibrillation Left bundle branch block Compared to ECG 09/12/2019 17:37:05 No significant change was found Electronically Signed On 10-18-2019 8:47:10 WASTE BALER by Gama Hernandez [email or web address] <ELECTRONICALLY SIGNED> By: Gama Hernandez MD, [facility] 10/18/19 0847 1518 151 Gama Hernandez MD, [facility] /EPI
== END 2019-10-17 17:59 | disposition home or self-care (01) ==
LOC: ER 15:09
PROVIDERS: Emergency Medicine
DX: J85.1 Abscess of lung with pneumonia (principal); I10 Essential (primary) hypertension; E03.9 Hypothyroidism, unspecified; E78.00 Pure hypercholesterolemia, unspecified; I25.2 Old myocardial infarction; Z88.1 Allergy status to other antibiotic agents

== ENCOUNTER 2019-10-23 08:49 | Inpatient (IN) | payer OTHER ==
[~2019-10-23] VITALS: Ht 154.9 cm; Wt 64.0 kg
[~2019-10-23 08:49] MED LIST changes: +LEVAQUIN 750 M750 MG PO; +ZOFRAN ODT4 MG PO
[2019-10-23 08:53] VITALS: BP 133/81
[2019-10-23 09:46] LABS: ABSOLUTE NEUTROPHILS 4.6 thou/uL (1.4-8.2); BASOPHILS 0.8 % (0.0-2.0); EOSINOPHILS 0.8 % (0.0-3.0); HEMATOCRIT 42.2 % (37.0-47.0); HEMOGLOBIN 13.1 gm/dL (12.0-15.0); LYMPHOCYTES 18.3 % (24.0-44.0); MCH 27.6 pg (26.0-34.0); MCHC 31.1 g/dL (28.0-37.0); MCV 88.7 fL (80.0-100.0); MONOCYTES 5.3 % (1.0-8.0); PLATELET COUNT 232 thou/uL (150-400); POLYS 74.8 % (36.0-66.0); RBC 4.76 mil/uL (4.20-5.00); RDW 15.4 % (10.5-14.5); WBC 6.1 thou/uL (4.0-11.0)
[2019-10-23 09:54] LABS: ANION GAP 11 mmol/L (7-16); BUN 20 mg/dL (7-18); CALCIUM 9.5 mg/dL (8.5-10.1); CHLORIDE 106 mmol/L (98-107); CO2 25 mmol/L (21-32); CREATININE 1.6 mg/dL (0.6-1.0); GLUCOSE 144 mg/dL (74-106); POTASSIUM 5.1 mmol/L (3.5-5.1); SODIUM 142 mmol/L (136-145)
[2019-10-23 10:05] LABS: ALBUMIN 3.3 g/dL (3.4-5.0); SGOT 21 U/L (15-37); SGPT 19 U/L (30-65); TOTAL BILIRUBIN 1.1 mg/dL (<0.1-1.0); TROPONIN-I <0.06 ng/mL (<0.06)
[2019-10-23 11:41] VITALS: BP 137/78
[2019-10-23 12:56] VITALS: BP 155/80
[2019-10-23 14:04] LABS: FOLIC ACID 17.8 ng/mL (8.6-58.9); TSH 0.378 uIU/mL (0.358-3.740)
[2019-10-23] MEDS ORDERED: AUGMENTIN 875-1 EACH PO ×2 (14:56)
[2019-10-23] MEDS ORDERED: TAPAZOLE5 MG PO ×2 (15:02)
[2019-10-23] MEDS ORDERED: DILTIAZEM 24HR120 M1 PO ×2 (15:03)
--- NOTE | 2019-10-23 15:54 | 2DMMODE ---
[facility] [place] [address] 2 D/M-MODE ECHOCARDIOGRAM Name: DIAMOND ARNDT Room #: 216-P ADM IN M.R.#: [id number] Admission: 10/23/19 Attend Phys: Jesus Lares Discharge: Date of : [birth year] Report #: [id number] THIS REPORT FOR: //name// APPROVED REPORT Study performed: 10/23/2019 14:18:51 EXAM: Comprehensive 2D, Doppler, and color-flow Echocardiogram Patient Location: Bedside Room #: 216 Status: routine BSA: 1.59 HR: 90 bpm BP: 155/80 mmHg Rhythm: NSR Other Information Study Quality: Good Indications Dyspnea Hx: ISCM, CAD, Afib, HTN, HLP. 2D Dimensions RVDd: 40.23 mm IVSd: 7.98 (7-11mm) LVOT Diam: 18.51 (18-24mm) LVDd: 51.01 mm PWd: 7.75 (7-11mm) Ascending Ao: 31.14 (22-36mm) LVDs: 39.41 (25-40mm) Aortic Root: 28.06 mm Volumes Left Atrial Volume (Systole) Single Plane 4CH: 97.81 mL Single Plane 2CH: 83.52 mL LA ESV Index: 62.00 mL/m2 Aortic Valve AoV Peak Unruly.: 1.33 m/s AO Peak Gr.: 9.93 mmHg LVOT Max P.30 mmHg LVOT Max V: 0.75 m/s ADOLFO Vmax: 1.52 cm2 Mitral Valve MV Decel. Time: 112.86 ms MV E Max Unruly.: 0.84 m/s [facility] [address] [place] [address] 2 D/M-MODE ECHOCARDIOGRAM Name: DIAMOND ARNDT Room #: [address] [place] [address] [place] [facility].#: [id number] Admission: 10/23/19 Attend Phys: Jesus Lares Discharge: Date of : 07/23/[birth year] Report #: [id number] Pulmonary Valve PV Peak Unruly.: 0.62 m/s PV Peak Gr.: 1.55 mmHg Tricuspid Valve TR Peak Unruly.: 3.40 m/s RAP Estimate: 10.00 mmHg TR Peak Gr.: 46.00 mmHg PA Pressure: 56.00 mmHg Left Ventricle The left ventricle is normal size. There is normal left ventricular wall thickness. Left ventricular systolic function is moderately decreased. LVEF is 35-40%. This study is not technically sufficient to allow evaluation of the LV diastolic function due to atrial fibrillation. Right Ventricle Right ventricle is at the upper limits of normal. Right ventricle is mildly hypokinetic. Atria Left atrium is severely dilated. Right atrium is severely dilated. Aortic Valve The aortic valve is normal in structure. Leaflets are moderately calcified but appears to have adequate excursion. Moderate aortic regurgitation. Mitral Valve Mitral valve leaflets are mildly thickened. Mild mitral annular calcification. Moderate mitral regurgitation. Tricuspid Valve The tricuspid valve is normal in structure. Moderate to severe tricuspid regurgitation. Estimated PAP is 45-50mmHg. Pulmonic Valve The pulmonary valve is normal in structure. Mild pulmonic regurgitation. Great Vessels The aortic root is normal in size. The ascending aorta is normal in size. IVC is normal in size and collapses <50% with inspiration. [facility] [address] [place] [address] 2 D/M-MODE ECHOCARDIOGRAM Name: DIAMOND ARNDT Room #: 216-P [facility] IN M.R.#: [id number] Admission: 10/23/19 Attend Phys: Jesus Lares Discharge: Date of : 07/23/[birth year] Report #: [id number] Pericardium There is no pericardial effusion. Left and right pleural effusions noted. <Conclusion> The left ventricle is normal size. LVEF is 35-40%. Right ventricle is at the upper limits of normal. Right ventricle is mildly hypokinetic. Left atrium is severely dilated. Right atrium is severely dilated. The aortic valve is normal in structure. Leaflets are moderately calcified but appears to have adequate excursion. Moderate aortic regurgitation. Mitral valve leaflets are mildly thickened. Mild mitral annular calcification. Moderate mitral regurgitation. There is no pericardial effusion. Left and right pleural effusions noted. <ELECTRONICALLY SIGNED> By: Woodrow Evans MD 10/23/19 1554 1554 1554 Woodrow Evans MD /INF
--- NOTE | 2019-10-23 16:18 | NUR ---
PT ARRIVED TO UNIT AT APPROX 1330 BY ER STAFF. PT ALERT AND ORIENTED. VSS. UP WITH SUPERVISION TOLERATING WELL. O2 SATS WNL ON ROOM AIR. PT C/O SOB WITH ACTIVITY. ADMISSION TELE STRIP PRINTED AND DOCUMENTED. ADMISSION COMPLETE. CONSENTS SIGNED. SPOUSE NOTIFIED OF ARRIVAL TO ROOM. WILL ACKNOWLEDGE AND IMPLEMENT FURTHER ORDERS. PT CURRENTLY RESTING IN BED DENYING OF ANY NEEDS. WILL CONT TO MONITOR AND FOLLOW POC.
[2019-10-23 16:46] VITALS: BP 123/65
[2019-10-23 20:00] VITALS: BP 99/53
[2019-10-23 20:55] VITALS: BP 99/53
[2019-10-24] VITALS (8 sets, daily range): BP systolic 105–119; BP diastolic 51–80
[2019-10-24 05:49] LABS: ABSOLUTE NEUTROPHILS 3.6 thou/uL (1.4-8.2); EOSINOPHILS 0.6 % (0.0-3.0); HEMATOCRIT 37.7 % (37.0-47.0); HEMOGLOBIN 11.9 gm/dL (12.0-15.0); LYMPHOCYTES 24.5 % (24.0-44.0); MCH 27.7 pg (26.0-34.0); MCHC 31.5 g/dL (28.0-37.0); MCV 88.2 fL (80.0-100.0); PLATELET COUNT 213 thou/uL (150-400); POLYS 65.9 % (36.0-66.0); RBC 4.27 mil/uL (4.20-5.00); RDW 15.1 % (10.5-14.5); WBC 5.5 thou/uL (4.0-11.0)
--- NOTE | 2019-10-24 06:01 | NUR ---
A/O X4.UP WITH STANDBY ASSIST.VOIDED.SPO2 WAS 86%.O2 2L NC WAS PLACED.PATIENT STATES SHE FEELS BETTER THIS MORNING.MONITOR SHOWS AFIB.POC CONTINUED.
[2019-10-24 06:16] LABS: CALCIUM 8.1 mg/dL (8.5-10.1); CREATININE 1.7 mg/dL (0.6-1.0); MAGNESIUM 1.5 mg/dL (1.8-2.4)
[2019-10-24 06:28] LABS: POTASSIUM 4.1 mmol/L (3.5-5.1)
--- NOTE | 2019-10-24 12:06 | NUR ---
Patient admits with CHF. 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 Patient independent with adls job captain. Patient independent with adls job captain. She uses no assistive device. She reports spouse independent. Discussed HH at dc and patient reports no needed and she does not want at dc. PCP Dr Vicki Jane. She is hopeful to dc early, early am due to weather. [place] to her to transport her home in inclement weather.
--- NOTE | 2019-10-24 14:58 | NUR ---
AAOX4. CALM, COOPERATIVE. AT BEDSIDE. WORKING WITH PT AND OT. AFIB PER TELE. WILL CONTINUE TO FOLLOW CLOSELY.
[2019-10-24] MEDS ORDERED: AUGMENTIN 500-1 EACH PO ×2 (16:33)
--- NOTE | 2019-10-25 17:07 | EKG ---
[address] [address] ELECTROCARDIOGRAM REPORT Name: DIAMOND ARNDT Room #: 216-[facility] IN M.R.#: [id number] Admission: 10/23/19 Attend Phys: James Chase MD Discharge: 10/24/19 Date of : [birth year] Report #: [id number] THIS REPORT FOR: //name// [facility] ED Test Date: 2019-10-23 Test Time: 09:21:38 Pat Name: DIAMOND HAIR Department: Room: [facility] Gender: F Conveyor System Operator: TREY : 1930 Requested By: Rl Sher Order Number: [id number] MD: Abdelrahman Antunez Measurements Intervals [place] Rate: 100 P: RI: QRS: -62 QRSD: 161 T: 118 QT: 448 QTc: 578 Interpretive Statements Atrial fibrillation Left bundle branch block Baseline wander in lead(s) V4,V5 Compared to ECG 10/17/2019 15:18:42 No significant changes Electronically Signed On 10-25-2019 17:06:18 VP [employer] SERVICE LINE by Abdelrahman Antunez [email or web address] <ELECTRONICALLY SIGNED> By: Abdelrahman Antunez MD 10/25/19 1706 0 0 Abdelrahman Antunez MD /EPI
== END 2019-10-24 17:42 | disposition home or self-care (01) | DRG 291 ==
LOC: ER 08:49 → EROBS 11:56 → 2N 11:56
PROVIDERS: Emergency Medicine; Nurse Practitioner; ADMIT Hospitalist
DX: I13.0 Hypertensive heart and chronic kidney disease with heart failure and stage 1 through stage 4 chronic kidney disease, or unspecified chronic kidney disease (principal); J96.00 Acute respiratory failure, unspecified whether with hypoxia or hypercapnia; I50.23 Acute on chronic systolic (congestive) heart failure; N17.9 Acute kidney failure, unspecified; E44.0 Moderate protein-calorie malnutrition; I47.2 Ventricular tachycardia; E03.9 Hypothyroidism, unspecified; J30.2 Other seasonal allergic rhinitis; E78.00 Pure hypercholesterolemia, unspecified; I48.91 Unspecified atrial fibrillation; E78.5 Hyperlipidemia, unspecified; I34.0 Nonrheumatic mitral (valve) insufficiency; I35.1 Nonrheumatic aortic (valve) insufficiency; N18.9 Chronic kidney disease, unspecified; I44.7 Left bundle-branch block, unspecified; I25.5 Ischemic cardiomyopathy; M81.0 Age-related osteoporosis without current pathological fracture; I25.10 Atherosclerotic heart disease of native coronary artery without angina pectoris; E05.90 Thyrotoxicosis, unspecified without thyrotoxic crisis or storm; G47.00 Insomnia, unspecified; Z98.49 Cataract extraction status, unspecified eye; Z87.01 Personal history of pneumonia (recurrent); I25.2 Old myocardial infarction; Z79.2 Long term (current) use of antibiotics; Z79.899 Other long term (current) drug therapy; Z88.1 Allergy status to other antibiotic agents; Z68.26 Body mass index [BMI] 26.0-26.9, adult; Z79.01 Long term (current) use of anticoagulants
CPT/HCPCS: 10081

== ENCOUNTER → 2019-11-16 | Outpatient (CLI) | payer OTHER ==
[~2019-11-16] MED LIST changes: +AUGMENTIN 500-1 EACH PO; +AUGMENTIN 875-1 EACH PO; +DILTIAZEM 24HR120 M1 PO; +SPIRONOLACTONE25 MG PO; +TAPAZOLE5 MG PO; +TORSEMIDE20 MG PO
== END ==
LOC: SJCVC 13:53
DX: I11.0 Hypertensive heart disease with heart failure (principal); I50.23 Acute on chronic systolic (congestive) heart failure; I48.91 Unspecified atrial fibrillation; I42.8 Other cardiomyopathies; E03.9 Hypothyroidism, unspecified; E78.5 Hyperlipidemia, unspecified; I25.2 Old myocardial infarction; M81.0 Age-related osteoporosis without current pathological fracture; Z79.899 Other long term (current) drug therapy

== ENCOUNTER → 2019-11-21 | Outpatient (CLI) | payer OTHER ==
[~2019-11-21] MED LIST changes: -SPIRONOLACTONE25 MG PO; -TORSEMIDE20 MG PO
== END ==
LOC: RAD 09:04
DX: J98.11 Atelectasis (principal); J98.4 Other disorders of lung; J18.9 Pneumonia, unspecified organism

== ENCOUNTER → 2019-11-21 | Outpatient (CLI) | payer OTHER ==
[~2019-11-21] MED LIST changes: +SPIRONOLACTONE25 MG PO; +TORSEMIDE20 MG PO
== END ==
LOC: SJCVC 15:28
DX: I11.0 Hypertensive heart disease with heart failure (principal); I50.23 Acute on chronic systolic (congestive) heart failure; I42.8 Other cardiomyopathies; I48.91 Unspecified atrial fibrillation; E03.9 Hypothyroidism, unspecified; I25.2 Old myocardial infarction; Z79.899 Other long term (current) drug therapy

== ENCOUNTER → 2019-12-20 | Outpatient (CLI) | payer OTHER ==
[~2019-12-20] MED LIST changes: -SPIRONOLACTONE25 MG PO; -TORSEMIDE20 MG PO
== END ==
LOC: SJCVC 09:16
DX: I42.8 Other cardiomyopathies (principal); I50.22 Chronic systolic (congestive) heart failure; R25.2 Cramp and spasm; E78.5 Hyperlipidemia, unspecified; I25.2 Old myocardial infarction; M81.0 Age-related osteoporosis without current pathological fracture; Z79.899 Other long term (current) drug therapy

== ENCOUNTER 2020-01-11 11:53 | Inpatient (IN) | payer OTHER ==
[~2020-01-11] VITALS: Ht 154.9 cm; Wt 60.8 kg
[2020-01-11 12:10] VITALS: BP 114/61
[2020-01-11 12:46] LABS: ABSOLUTE NEUTROPHILS 4.3 thou/uL (1.4-8.2); BASOPHILS 0.6 % (0.0-2.0); EOSINOPHILS 0.1 % (0.0-3.0); HEMATOCRIT 38.7 % (37.0-47.0); HEMOGLOBIN 12.2 gm/dL (12.0-15.0); LYMPHOCYTES 20.9 % (24.0-44.0); MCH 26.5 pg (26.0-34.0); MCHC 31.6 g/dL (28.0-37.0); MCV 83.9 fL (80.0-100.0); MONOCYTES 7.9 % (1.0-8.0); PLATELET COUNT 213 thou/uL (150-400); POLYS 70.5 % (36.0-66.0); RBC 4.61 mil/uL (4.20-5.00); RDW 17.5 % (10.5-14.5); WBC 6.1 thou/uL (4.0-11.0)
[2020-01-11 12:54] LABS: ANION GAP 14 mmol/L (7-16); BUN 69 mg/dL (7-18); CALCIUM 9.7 mg/dL (8.5-10.1); CHLORIDE 95 mmol/L (98-107); CO2 20 mmol/L (21-32); CREATININE 2.8 mg/dL (0.6-1.0); GLUCOSE 142 mg/dL (74-106); SODIUM 129 mmol/L (136-145)
[2020-01-11 12:55] LABS: POTASSIUM 5.1 mmol/L (3.5-5.1)
[2020-01-11 13:03] LABS: TROPONIN-I <0.06 ng/mL (<0.06)
[2020-01-11] MEDS ORDERED: TORSEMIDE20 MG PO (13:03)
[2020-01-11] MEDS ORDERED: CARVEDILOL12.5 MG PO (13:03)
[2020-01-11] MEDS ORDERED: SPIRONOLACTONE25 MG PO (13:04)
--- NOTE | 2020-01-11 14:48 | NUR ---
report attempted to admission nurse at this time. Nurse unable to take report and will call back
[2020-01-11 15:05] VITALS: BP 105/66
--- NOTE | 2020-01-11 15:10 | NUR ---
Report called to FLIP Borrero
[2020-01-11 15:49] VITALS: BP 90/56
--- NOTE | 2020-01-11 17:58 | NUR ---
PATIENT ADMITTED TO ROOM AT THIS TIME. SHE IS ALERT ORIENTED X4. DENIES PAIN . SHE HOWEVER DOES HAVE PAIN WHEN SHE MOVES. STATES SHE HAS CHRONIC BACK PAIN THAT HAD REQUIRED SURGERY. ROOM AIR. PLEASANT WITH ZEINAB.
[2020-01-11 21:29] VITALS: BP 91/43
[2020-01-12 04:08] VITALS: BP 102/51
[2020-01-12 06:00] LABS: ABSOLUTE NEUTROPHILS 4.7 thou/uL (1.4-8.2); BASOPHILS 0.7 % (0.0-2.0); EOSINOPHILS 0.4 % (0.0-3.0); HEMATOCRIT 36.8 % (37.0-47.0); HEMOGLOBIN 11.8 gm/dL (12.0-15.0); LYMPHOCYTES 16.4 % (24.0-44.0); MCH 26.7 pg (26.0-34.0); MCHC 32.1 g/dL (28.0-37.0); MCV 83.4 fL (80.0-100.0); MONOCYTES 7.8 % (1.0-8.0); PLATELET COUNT 190 thou/uL (150-400); POLYS 74.7 % (36.0-66.0); RBC 4.42 mil/uL (4.20-5.00); RDW 17.3 % (10.5-14.5); WBC 6.3 thou/uL (4.0-11.0)
--- NOTE | 2020-01-12 06:02 | NUR ---
ASSUMED CARE OF PATIENT AT 1900. PATIENT REMAINS ON SPECIAL PRECAUTIONS FOR COVID R/O PENDING RESULTS. PATIENT CALLED APPROPRIATELY FOR ASSSISTANCE TO RESTROOM AND HAS STEADY GAIT WITH AMBULATION. SBA DUE TO IV AND SCDS. PATIENT REQUESTED PRN PAIN MEDICATION ONCE R/T CHRONIC BACK PAIN.
[2020-01-12 06:12] LABS: CALCIUM 8.8 mg/dL (8.5-10.1); CREATININE 2.6 mg/dL (0.6-1.0); POTASSIUM 4.3 mmol/L (3.5-5.1)
[2020-01-12 08:00] VITALS: BP 83/48
[2020-01-12 12:00] VITALS: BP 96/58
--- NOTE | 2020-01-12 17:42 | NUR ---
PATIENT HAS RESTED IN ROOM THROUGH THE DAY. SHE COMPLAINTS OF PAIN WHEN SHE LIE ON HER BACK. REFUSED OFFER FOR DILAUDID STATING THE BACK PAIN IS RESOLVED. SHE IS ALERT ORIENTED X4. SPOKE WITH AND DAUGHTER AND ANSWERED ANY QUESTIONS THEY MAY HAVE. RESPIRATIONS ARE EVEN NON LABORED. BP STILL MD RIKA NOTIFIED. NEW CONSULTS CALLED FOR CARDIOLOGY AND NEPHROLOGY. WILL CONT WITH PLAN OF CARE.
[2020-01-12 21:19] VITALS: BP 97/54
[2020-01-13 05:05] LABS: CALCIUM 8.3 mg/dL (8.5-10.1); CREATININE 2.4 mg/dL (0.6-1.0); POTASSIUM 4.4 mmol/L (3.5-5.1)
[2020-01-13 05:22] VITALS: BP 91/45
--- NOTE | 2020-01-13 06:16 | NUR ---
ASSUMED CARE AT 1900. PT DENIED PAIN TONIGHT, REPORTING HER BACK FELT MUCH BETTER. DENIED SOB OR NAUSEA. C/O TWICE OF BLURRED/DOUBLE VISION BUT THOUGHT IT MIGHT BE RELATED TO ALLERGIES; OBTAINED ORDER TO RESTART ALLERGY MEDICINE THIS AM. BP CONTINUED TO BE SOFT 90'S/50'S. PT REPORTED FEELING LIKE DRINKING WATER THIS AM AND HAVING SOMETHING SMALL AT BREAKFAST; ENOURAGED PT TO ORDER A MILD BREAKFAST AND EDUCATED ABOUT CALLING A DIET ORDER. NO OTHER CONCERNS, WILL CONTINUE TO MONITOR.
[2020-01-13 07:40] VITALS: BP 91/50
[2020-01-13 12:20] VITALS: BP 99/59
--- NOTE | 2020-01-13 13:16 | NUR ---
PT ALERT AND ORIENTED TIMES FOUR. VSS, IVF INFUSING PER ORDER. SR ON TELE. PT DENIES PAIN/SOA. PT TOLERATES MEDS AND SMALL PORTIONS OF MEALS. PT UP TO RESTROOM WITH STANDBY ASSIST. WILL CONTINUE TO MONITOR.
[2020-01-13 16:28] VITALS: BP 97/57
[2020-01-13 19:57] VITALS: BP 93/48
[2020-01-14 05:31] VITALS: BP 101/57
--- NOTE | 2020-01-14 06:03 | NUR ---
ASSUMED CARE AT 1900. PT REPORTED HAVING MORE BACK PAIN TODAY WELL SOME CRAMPS IN HER CALVES; GAVE NORCO ONCE AND OBTAINED ORDER FOR VOLTAREN GEL FOR CALVES. PT ALSO C/O BECOMING VERY WINDED/TIRED WITH SIMPLE ACTIVITIES LIKE TURNING IN THE BED; SHE STAYED ON 2L O2 OVERNIGHT, WHICH SHE REPORTED HELPED HER SLEEP BETTER. HAD SOME CRACKLES IN BASES, OBTAINED ORDER TO STOP FLUIDS AND HAVE A CXR THIS AM. PT REPORTS FEELING BETTER THIS AM, ALTHOUGH STILL C/O FEELING WEAK. NO OTHER CONCERNS, WILL CONTINUE TO MONITOR.
[2020-01-14 06:34] LABS: ALBUMIN 3.1 g/dL (3.4-5.0); CALCIUM 8.7 mg/dL (8.5-10.1); CREATININE 2.4 mg/dL (0.6-1.0); PHOSPHORUS 4.3 mg/dL (2.5-4.9); POTASSIUM 4.6 mmol/L (3.5-5.1)
[2020-01-14 08:00] VITALS: BP 99/53
--- NOTE | 2020-01-14 11:50 | NUR ---
PT WAS NEGATIVE FOR COVID19 AND WAS REMOVED FROM ISOLATION.
--- NOTE | 2020-01-14 14:38 | NUR ---
INITIAL ASSESSMENT: Received consult. SW reviewed chart and spoke with nursing and attending physician. Pt was admitted from home due to heart failure/MADHU. Pt was in isolation to r/o COVID-19. COVID-19 results are negative. Pt was moved to from 3W earlier today. Cardiology consulted. SW attempted to call pt's room x 2. No answer. Per chart, pt is alert/orientated and lives at home with her . Pt has been on O2 during the hospital stay. Plan is for pt to discharge home when medically stable. KARLEE is following to assist as needed with discharge planning.
--- NOTE | 2020-01-14 16:10 | NUR ---
PT ARRIVED FROM 3W, ASSESSED, VSS, PT REPOSITIONED TO LEFT SIDE FOR BACK COMFORT, CALL LIGHT IN BED, DISCUSSED POC, PT VERBALIZED UNDERSTANDING, WILL MONOITOR.
[2020-01-14 19:56] VITALS: BP 86/50
[2020-01-15 00:08] VITALS: BP 81/48
[2020-01-15 04:34] VITALS: BP 100/52
[2020-01-15 05:52] LABS: CALCIUM 8.2 mg/dL (8.5-10.1); CREATININE 2.7 mg/dL (0.6-1.0); POTASSIUM 5.1 mmol/L (3.5-5.1)
[2020-01-15 08:18] VITALS: BP 86/50
[2020-01-15 10:51] VITALS: BP 90/61
[2020-01-15 11:08] LABS: URINE BLOOD NEGATIVE (Negative); URINE CLARITY CLEAR; URINE COLOR YELLOW; URINE GLUCOSE-RANDOM* TRACE (Negative); URINE KETONES NEGATIVE (Negative); URINE LEUKOCYTES NEGATIVE (Negative); URINE NITRITE NEGATIVE (Negative); URINE PROTEIN (DIPSTICK) 1+ (Negative); URINE SPECIFIC GRAVITY >= 1.030 (1.005-1.035)
[2020-01-15 11:10] LABS: ICTOTEST (BILI CONFIRMATORY) Negative (Negative); URINE BILIRUBIN NEGATIVE (Negative)
[2020-01-15 11:15] LABS: URINE CREATININE-RANDOM* 193.4 mg/dL
[2020-01-15 11:41] LABS: BACTERIA 1-9 Few /HPF (None Seen); CRYSTALS None Seen /LPF (None Seen); HYALINE CASTS 0-3 Few /LPF (None Seen); SQUAMOUS 4-10 Moderate /LPF (0-3); URINE RBC 0-2 Rare /HPF (0-2); URINE WBC None Seen /HPF (0-5)
--- NOTE | 2020-01-15 16:00 | NUR ---
SW reviewed chart and spoke with attending physician. GI consulted today due to nausea/vomiting and trouble eating. ST consulted and pt will have a video swallow study today. Pt may need an EGD per GI. SW spoke with pt via phone. Introduced role of SW. Pt is alert/orientated x 4. Pt reports she lives at home with her . Prior to admission, pt was independent with ADLs. No use of DME. No hx of services or post-acute placement. Pt's PCP is Dr. Vicki Jane. Pt's plan is to return home when medically stable. Pt's family will provide transportation home when discharge. SW is following to assist as needed with discharge planning.
--- NOTE | 2020-01-15 16:37 | NUR ---
PT ALERT AND ORIENTED. VSS. POOR APETITE. EVALUATED BY SPEECH THERAPIST. NO NEW ORDERS. GI CONSULTED. NPO AFTER MIDNIGHT FOR EGD IN AM. WILL CONTINUE TO MONITOR.
[2020-01-15 16:38] VITALS: BP 99/64
[2020-01-15 20:04] VITALS: BP 89/69
--- NOTE | 2020-01-16 03:09 | NUR ---
ASSUMED PT CARE AT AROUND 1900, PT IS AWAKE, A&OX4, MAKES NEEDS KNOWN, DENIES N/V, AFIB/BBB ON THE MONITOR, ASSESSMENTS CHARTED, COMPLAINED OF SOA WITH ACTIVITY, VS STABLE, SATS OK ON ROOM AIR, NPO AFTER MIDNIGHT FOR EGD IN THE AM, DENIES CONCERNS AT THIS TIME, WILL CONTINUE TO MONITOR
[2020-01-16 03:45] VITALS: BP 95/55
--- NOTE | 2020-01-16 04:09 | NUR ---
PT VOIDED 150 MLS IN THREE VOIDS, BLADDER SCAN WITH ONLY 3ML
[2020-01-16 04:58] LABS: ALBUMIN 2.9 g/dL (3.4-5.0); CALCIUM 8.3 mg/dL (8.5-10.1); CREATININE 3.1 mg/dL (0.6-1.0); PHOSPHORUS 4.5 mg/dL (2.5-4.9); POTASSIUM 4.3 mmol/L (3.5-5.1)
[2020-01-16 04:59] LABS: DIRECT BILIRUBIN 1.4 mg/dL (<0.1-0.2); TOTAL BILIRUBIN 2.2 mg/dL (<0.1-1.0); TOTAL PROTEIN 5.6 g/dL (6.4-8.2)
[2020-01-16 07:27] VITALS: BP 92/56
[2020-01-16 16:39] VITALS: BP 82/37
--- NOTE | 2020-01-16 17:25 | NUR ---
PT ALERT AND ORIENTED. VSS. HAD EGD TODAY. SEE GI NOTES. POOR APETITE. WILL CONTINUE TO MONITOR.
[2020-01-16 19:30] VITALS: BP 94/55
[2020-01-17 03:35] VITALS: BP 80/46
[2020-01-17 05:22] LABS: ALBUMIN 2.7 g/dL (3.4-5.0); CALCIUM 8.4 mg/dL (8.5-10.1); CREATININE 3.5 mg/dL (0.6-1.0); PHOSPHORUS 5.2 mg/dL (2.5-4.9); POTASSIUM 4.4 mmol/L (3.5-5.1)
--- NOTE | 2020-01-17 06:56 | NUR ---
pt resting quietly in room called out at 0030 c/o increased pain, in tears refused po med given prn iv pain med with much relief and able to sleep the rest of the evening c/o seeing double and blurry vision she states is related to not taking her home dose of her allergy meds, vss bp remains low, will con't to monitor per ppoc.
[2020-01-17 08:00] VITALS: BP 113/73
--- NOTE | 2020-01-17 13:48 | NUR ---
KARLEE reviewed chart and spoke with nursing and attending physician. Pt is slowly progressing towards goals for discharge. Pt had an EGD yesterday. Pt is on full liquid diet. Therapies are working with pt to determine if pt may benefit from HH services and/or a walker. KARLEE attempted to call pt in her room. No answer. KARLEE is following to assist as needed with discharge planning.
--- NOTE | 2020-01-17 15:08 | PATH ---
[facility] [address] [place] [address] PATHOLOGY RPT PROCEDURE Name: DIAMOND ARNDT Room #: 211-P ADM IN M.R.#: [id number] Admission: 01/11/20 Date of : [birth year] Discharge: Report #: [id number] Path Case #: [id number] L[facility] Accession Number: [id number] . 01 Material submitted: . esophagus - BIOPSY OF ESOPHAGEAL ULCER IN A BED GUAN'S . 01 Clinical history: . Weight loss; dysphagia . 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 - Moderate acute inflammation, history of ulcer. - Squamous mucosa with mild esophagitis. (IUV/db; 01/17/2020) LBQ 01/17/2020 1033 Local . 02 Electronically signed: . Sneha Tomas MD, Pathologist NPI- [id number] . 01 Gross description: . The specimen is received in formalin, labeled "Diamond Arndt, biopsy of esophageal ulcer in bed of Guan's". Received is a segment of pale monsivais soft tissue measuring 0.4 cm in maximum dimensions. The specimen is submitted entirely in cassette A1. (CAA; 01/16/2020) QAC/QA 01/16/2020 1446 Local . 02 Pathologist provided ICD-10: K22.70, K20.9 . 02 CPT . 359156 Specimen Comment: A courtesy copy of this report has been sent to [phone] Specimen Comment: Report sent to Performed at: [address], [place] [id number] MD Emory Calvillo MD Phone: [phone] Performed at: [address] [id number] MD Sneha Tomas MD Phone: [phone]
--- NOTE | 2020-01-17 16:12 | NUR ---
ASSUMED CARE PT SHIFT CHANGE. ASSESSMENT CHARTED. MEDS GIVEN PER DEC. PT ALERT AND ORIENTED. VSS. DENIES PAIN. O2 SATS WNL ON ROOM AIR. PT REFUSED PT/OT THIS SHIFT. APPETITE CONTINUES TO BE LESS THAN ADEQUATE, PT ENCOURAGED TO EAT MUCH TOLERATED. IV FLUIDS ORDERED. PT UP TO BATHROOM X1 ASSIST TOLERATING WELL. HOME MEDS BROUGHT IN AND STARTED. PT CURRENTLY RESTING IN BED DENYING OF NEEDS/CONCERNS. WILL CONTINUE TO MONITOR AND FOLLOW POC.
[2020-01-17 16:20] VITALS: BP 87/57
[2020-01-17 17:50] VITALS: BP 104/63
[2020-01-17 20:25] VITALS: BP 89/54
[2020-01-17 23:41] VITALS: BP 98/47
[2020-01-18 03:35] VITALS: BP 100/56
[2020-01-18 05:36] LABS: ALBUMIN 2.8 g/dL (3.4-5.0); CALCIUM 8.5 mg/dL (8.5-10.1); CREATININE 3.7 mg/dL (0.6-1.0); PHOSPHORUS 5.2 mg/dL (2.5-4.9)
--- NOTE | 2020-01-18 05:59 | NUR ---
PATIENTS CARES WERE ASSUMED AT SHIFT CHANGE. PATIENT WAS ASSESSED AND MEDS ERE PASSED. PATIENT C/O NO SLEEP THIS SHIFT AND SHE BELIEVES ITS DUE TO SOME NURSE GIVING HER NON DROWSY CLAIRITIN.BSC WAS USE DURING THE NIGHT AND PATIENT WAS VERY HAPPY WHEN FLUIDS WAS DONE. HOURLY ROUNDS WEE DONE, BED ALARM IS ON.
[2020-01-18 07:23] VITALS: BP 87/47
--- NOTE | 2020-01-18 12:20 | NUR ---
PT CARE ASSUMED AT 0700. A&Ox4. PT IS AFIB WITH BBB. PT IS HAVING ISSUES WITH SLEEPING AND IS MENTALLY EXHAUSTED AND WOULD LIKE SOMETHING TO SLEEP FOR TONIGHT. BP LOW THIS AM FLUID BOLUS GIVEN. WILL RECHECK. IV IS PATENT WITH NO REDNESS OR EDEMA. PAIN MANAGED WITH PAIN MEDICATION AND CREAM ON BACK AND CALVES. PT CONTINUES TO HAVE POOR APPETITE AND NAUSEA WITH NO VOMITTING. I WAS ABLE TO CONVINCE THE PT TO DRINK ONE CUP OF CHICKEN BROTH WHICH SHE WAS ABLE TO GET DOWN. SHE CONTINUES TO STRUGGLE WITH SWALLOWING PILL. BIG PILLS NEED TO BE BROKEN UP AND SMALL PILLS ARE TAKEN ONE AT A TIME. PT REFUSED TO HAVE HER [place] CHANGED OR TO GET WASHED UP BECAUSE SHE FEELS TO WEAK ABD THE LIGHT HURTS HER EYES. SHE SAT AT THE EDGE OF THE BED FOR 5 MINUTES TO DRINK HER BROTH THEN LAYED BACK DOWN. FALL PROTOCOL IN PLACE. CALL LIGHT IN REACH.
--- NOTE | 2020-01-18 12:22 | EKG ---
[facility] [place] [address] ELECTROCARDIOGRAM REPORT Name: DIAMOND ARNDT Room #: 211-P ADM IN M.R.#: [id number] Admission: 01/11/20 Attend Phys: Humphrey Bonilla MD Discharge: Date of : [birth year] Report #: [id number] THIS REPORT FOR: cc: Vicki Jane MD, Michelle R. MD Lundgren,Gama Farah MD [facility] ~ THIS REPORT FOR: //name// [facility] ED Test Date: 2020-01-11 Test Time: 12:02:49 Pat Name: DIAMOND ARNDT Department: Room: 357 Gender: F Delivery Rep: [facility] : 1930 Requested By: Michael Babin Order Number: [id number] MD: Gama Hernandez Measurements Intervals [place] Rate: 107 P: MS: QRS: -73 QRSD: 194 T: 113 QT: 468 QTc: 625 Interpretive Statements Atrial fibrillation Left bundle branch block Compared to ECG 10/23/2019 09:21:38 No significant changes Electronically Signed On 01-14-2020 9:07:04 CDT by Gama Hernandez [email or web address] <ELECTRONICALLY SIGNED> By: Gama Hernandez MD, [facility] 01/14/20 0907 1202 1202 Gama Hernandez MD, [facility] /EPI
--- NOTE | 2020-01-18 14:32 | NUR ---
SW reviewed chart and spoke with attending physician. Pt is slowly progressing towards goals for discharge. Pt's diet being advanced. Therapy to work with pt to assist with recommendations for discharge needs. SW spoke with pt via phone. Pt states she has started to feel better the past couple of hours. SW discussed post-acute needs. Pt states she will think about her options when she is able to eat and feels better. No weekend discharge anticipated. SW is following to assist as needed with discharge planning.
[2020-01-18 16:38] VITALS: BP 99/59
[2020-01-18 20:47] VITALS: BP 95/67
[2020-01-19 04:00] VITALS: BP 105/63
[2020-01-19 04:34] LABS: ALBUMIN 4.3 g/dL (3.4-5.0); CALCIUM 8.4 mg/dL (8.5-10.1); CREATININE 3.8 mg/dL (0.6-1.0); PHOSPHORUS 5.3 mg/dL (2.5-4.9); POTASSIUM 4.6 mmol/L (3.5-5.1)
--- NOTE | 2020-01-19 05:08 | NUR ---
Pt. requested sleep med stating she has not had a good night sleep for few days. Melatonin given and verbalized she slept fair. Lidocaine patch applied to back and diclofenac gel to both shoulders to help relieve discomfort. Up with assist to bathroom. Still having discomfort when swallowing pills. No nausea or vomiting but stated it makes her gag when taking pills. She does get short of breath with exertiom. Slowly making progress towards care plan goals.
[2020-01-19 07:30] VITALS: BP 105/62
--- NOTE | 2020-01-19 07:51 | NUR ---
ASSUMED CARE OF PT AT SHIFT CHANGE, C/O GREAT PAIN IN BACK AND DOUBLE VISION, STATES SHES HAD FOR THREE DAYS, HAS HX OF 'BRAIN INFECTION' PER HER STATEMENT. ENCOURAGED HER TO LET PHYSICIAN KNOW AND I'LL ALSO MESSAGE WHEN I GET A MOMENT. ENCOURAGED HER TO USE CALL LIGHT FOR ANY NEEDS. SHOWS RETURN DEMO DOMESTIC CLEANER LIGHT USE, A&0X4.STRONG BUE REAL ESTATE MANAGER, ITCHES ON BACK, RASH REPORTED OFF ON BACK AND NOW SHE STATES IT IS MOVING DOWN HER LEGS, ITCHY. NO LEAKAGE, MOUTH DRY AND 'ALL THE WAY DOWN MY THROAT SO IT'S HARD TO TALK' EVER SINCE GI TEST. SCATTERED MINIMAL BRUISING/FRAGILE SKIN. MAKES POSITION CHANGES BY SELF, SBA TO RESTROOM WITH STAFF. WILL CONTINUE TO MONITOR. SEE SEPARATE INTERVENTIONS FOR ASSESSMENTS
[2020-01-19 11:40] VITALS: BP 123/80
--- NOTE | 2020-01-19 14:16 | NUR ---
SPOKE W/SPOUSE RE: KIDNEY FUNCTION AND A GENERAL UPDATE PER DR. FLORES WHO ALSO STATES SHE'LL CALL LATER ON IN THE AFTERNOON. DIAGNOSTICS ORDERED FOR PT'S SYMPTOMS.
[2020-01-19 16:20] VITALS: BP 105/68
--- NOTE | 2020-01-19 16:49 | NUR ---
PT'S SOA/BREATH SOUNDS SHE STATES HAVE BEEN BOTHERING HER SINCE LAST AUGUST WHEN HER COREG WAS INCREASED
[2020-01-19 16:57] LABS: FOLIC ACID 11.6 ng/mL (8.6-58.9)
[2020-01-19 19:24] VITALS: BP 105/59
[2020-01-19 21:05] VITALS: BP 105/59
[2020-01-20 02:06] LABS: IgA 145 mg/dL (64-422); IgG 791 mg/dL (586-1602); IgM 84 mg/dL (26-217)
--- NOTE | 2020-01-20 03:50 | NUR ---
Pt. reported intermittent double vision that has been going on for few days. No change in neuro status. Lidocaine patch in lower back. A fib,BBB with controlled rate. Tolerating room air well with O2 sat greater than 90%. Shortness of breath with exertion. Up with assist x1 to the bathroom. Voiding per toilet in small amount ( 50 ml each time ). PVR checked and only showed 53 ml. Slowly making progress towards care plan goals.
[2020-01-20 04:29] VITALS: BP 100/59
[2020-01-20 07:00] VITALS: BP 86/52
[2020-01-20 12:20] VITALS: BP 116/70
[2020-01-20 14:44] LABS: HEMATOCRIT 34.1 % (37.0-47.0); HEMOGLOBIN 10.6 gm/dL (12.0-15.0); MCH 26.3 pg (26.0-34.0); MCHC 31.1 g/dL (28.0-37.0); MCV 84.4 fL (80.0-100.0); RBC 4.04 mil/uL (4.20-5.00); RDW 18.5 % (10.5-14.5); WBC 4.8 thou/uL (4.0-11.0)
[2020-01-20 14:52] LABS: CALCIUM 9.9 mg/dL (8.5-10.1); CREATININE 4.6 mg/dL (0.6-1.0); POTASSIUM 4.5 mmol/L (3.5-5.1)
[2020-01-20 16:00] VITALS: BP 107/60
[2020-01-20 20:00] VITALS: BP 113/54
[2020-01-20 20:25] VITALS: BP 113/54
--- NOTE | 2020-01-20 20:25 | NUR ---
RECEIVED PT'S CARE AROUND 0730; PT. ON BED; RESTING WITH EYES CLOSED; EQUAL CHEST RISING NOTICED; DURING AM ASSESSMENT NO C/O PAIN; ST. NOT ABLE TO HAVE BREAKFAST AND PILLS AT THE SAME TIME; AM MEDICATION GIVEN; ABLE TO USE THE BED SIDE COMMODE; 50 ML OUTPUT; PHYSICIAN NOTIFIED DURING ROUNDINGS; PER DR. GARCIA NOTES SIGNED OFF FROM CASE ON 01/19/2020; ALBUMIN ORDER PER NEPHROLOGY; NEPHROLOGY PAGED; ORDERS RECEIVED; DURING AM ASSESSMENT GI REQUESTED SOME IV FLUIDS; HOSPITALIST NOTIFIED; NO NEW ORDERS; AROUND 1530 BLADDER SCANNER SHOWED 150 ML; HOSPITALIST NOTIFIED; ORDERS RECEIVED; OREILLY INSERTED; LOW URINE OUTPUT; MENTAL HEALTH PRACTITIONER PAGED; NOTIFIED ABOUT LOW OUTPUT; ORDERS RECEIVED; PT. C/O BACK PAIN; PRN MEDICATION GIVEM; MAP ABOVE 65; AFIB ON THE MONITOR; ASSESSMENT CHARGED; FOLLOWING POC; PASSED ON REPORT;
--- NOTE | 2020-01-21 01:34 | NUR ---
PAIN WELL CONTROLLED WITH HYDROCODONE;DESCRIBED GENERALIZED PAIN.PATIENT HAVING DIFFICULTY SWALLOWING PILLS BUT ABLE TO TAKE ALL HER PILLS TONIGHT.OREILLY TO DD WITH VERY SMALL AMOUNT OF OUTPUT.MONITOR SHOWS AFIB.POC CONTINUED.
[2020-01-21 03:22] VITALS: BP 98/67
[2020-01-21 06:01] LABS: ABSOLUTE NEUTROPHILS 3.6 thou/uL (1.4-8.2); BASOPHILS 0.9 % (0.0-2.0); EOSINOPHILS 0.4 % (0.0-3.0); HEMATOCRIT 31.1 % (37.0-47.0); HEMOGLOBIN 10.1 gm/dL (12.0-15.0); LYMPHOCYTES 16.4 % (24.0-44.0); MCH 27.4 pg (26.0-34.0); MCHC 32.4 g/dL (28.0-37.0); MCV 84.5 fL (80.0-100.0); PLATELET COUNT 143 thou/uL (150-400); POLYS 74.3 % (36.0-66.0); RBC 3.68 mil/uL (4.20-5.00); RDW 18.2 % (10.5-14.5); WBC 4.9 thou/uL (4.0-11.0)
[2020-01-21 06:21] LABS: ALBUMIN 4.5 g/dL (3.4-5.0); CREATININE 4.9 mg/dL (0.6-1.0); DIRECT BILIRUBIN 1.1 mg/dL (<0.1-0.2); POTASSIUM 4.4 mmol/L (3.5-5.1); TOTAL PROTEIN 5.9 g/dL (6.4-8.2)
[2020-01-21 06:30] LABS: CALCIUM 9.8 mg/dL (8.5-10.1)
[2020-01-21 08:00] VITALS: BP 104/59
[2020-01-21 12:00] VITALS: BP 99/66
--- NOTE | 2020-01-21 14:53 | 2DMMODE ---
[facility] [place] [address] 2 D/M-MODE ECHOCARDIOGRAM Name: JOSESITO ARNDTArben KING Room #: 211-P ADM IN M.R.#: [id number] Admission: 01/11/20 Attend Phys: Humphrey Bonilla MD Discharge: Date of : 07/23/[birth year] Report #: [id number] THIS REPORT FOR: cc: Vicki Jane MD, Michelle R. MD Lundgren,Gama Farah MD [facility] ~ APPROVED REPORT Study performed: 01/21/2020 14:02:33 EXAM: Limited 2D, Doppler, and color-flow Echocardiogram Patient Location: Bedside Room #: 211 Status: routine BSA: 1.61 HR: 96 bpm BP: 99/66 mmHg Rhythm: Atrial Fibrillation Other Information Study Quality: Good Indications CHF, cardiomegaly. Hx: Ischemic cardiomyopathy, PAF, CHF. (Complete echo done 10/23/19) 2D Dimensions LVDd: 47.83 mm LVDs: 38.26 (25-40mm) Aortic Valve AoV Peak Unruly.: 1.17 m/s AO Peak Gr.: 7.26 mmHg LVOT Max P.35 mmHg LVOT Max V: 0.76 m/s Tricuspid Valve TR Peak Unruly.: 2.92 m/s RAP Estimate: 15.00 mmHg TR Peak Gr.: 34.12 mmHg PA Pressure: 49.00 mmHg Left Ventricle The left ventricle is normal size. Left ventricular systolic function is moderate to severely decreased. LVEF is 30-35%. This study is not technically sufficient to allow evaluation of the LV diastolic [facility] [address] [place] [address] 2 D/M-MODE ECHOCARDIOGRAM Name: DIAMOND ARNDT Room #: 211-P [facility] IN M.R.#: [id number] Admission: 01/11/20 Attend Phys: Humphrey Bonilla, Discharge: Date of : 07/23/[birth year] Report #: [id number] function due to atrial fibrillation. Right Ventricle Right ventricle is mildly dilated. Right ventricle is mildly hypokinetic. Atria Left atrium is severely dilated. Right atrium is severely dilated. Aortic Valve The aortic valve is moderately thickened and calcified. Mild to moderate aortic regurgitation. There is no aortic valvular stenosis. Mitral Valve Mild mitral annular calcification. Moderate mitral regurgitation. Tricuspid Valve The tricuspid valve is normal in structure. Moderately severe to severe tricuspid regurgitation. Estimated pulmonary artery pressure of 45-50mmHg. Great Vessels IVC is dilated and collapses <50% with inspiration. Pericardium There is no pericardial effusion. <Conclusion> Abbreviated study. See full study dated 10/23/2019 Left ventricular systolic function is moderate to severely decreased. LVEF is 30-35%. Both atria are severely dilated. The aortic valve is moderately thickened and calcified. Mild to moderate aortic regurgitation. Mild mitral annular calcification. Moderate mitral regurgitation. Moderately severe to severe tricuspid regurgitation. Estimated [facility] [address] [place] [address] 2 D/M-MODE ECHOCARDIOGRAM Name: DIAMOND ARNDT Room #: 211-P ADM IN M.R.#: [id number] Admission: 01/11/20 Attend Phys: Humphrey Bonilla, Discharge: Date of : 07/23/[birth year] Report #: [id number] pulmonary artery pressure of 45-50mmHg. There is no pericardial effusion. <ELECTRONICALLY SIGNED> By: Gama Hernandez MD, FACC 01/21/20 1452 51 51 Gama Hernandez MD, FACC /INF
[2020-01-21 16:00] VITALS: BP 99/62
--- NOTE | 2020-01-21 16:15 | NUR ---
5M to eval. Patient admits from home with spouse. Therapy evals in process.
--- NOTE | 2020-01-21 17:59 | NUR ---
AAOX4. DEPRESSED, BUT USES HUMOR AT TIMES. LONG DISCUSSION WITH HER ADULT DTR [place]EN[place] IN [place] R/T ISSUES, [place] MODALITIES. LASIX DRIP PER DR. CHAND. RENAL LABS NOTED. VERY POOR ORAL INTAKE. AFIB WITH BBB PER TELE. OREILLY WITH SCANT, VERY DARK TANYA URINE. MULTIPLE TESTS TODAY. EF 30-35% PER ECH0. FREQUENT CHECKS; WILL CONTINUE TO FOLLOW.
[2020-01-21 18:07] LABS: COMPLEMENT-C3 47 mg/dL (82-167); COMPLEMENT-C4 8 mg/dL (14-44); IgA 93 mg/dL (64-422); IgG 443 mg/dL (586-1602); IgM 52 mg/dL (26-217)
[2020-01-21 20:18] VITALS: BP 112/67
--- NOTE | 2020-01-22 04:53 | NUR ---
ASSUMED PT CARE AT 1900. PT IS ALERT AND ORIENTED. PT AMBYLATES WITH A WALKER AND STANDBY ASSIST. FALL PRECAUTION IN PLACE. PT IS HAVING DIFFICULTY SWALLOWING. PHYSICIAN AWARE. OREILLY IN PLACE. ASSESSMENT COMPLETED AND DOCUMENTED. SCHEDULED MEDS ADMINISTERED TO PT. PT HAD TROUBLE SWALLOWING MEDICATIONS. LASIX DRIP CONTINUED. LIDOCAINE PATCH ON LOWER BACK. CONTINUE TO MONITOR PT. DENIES ANY FURTHER NEEDS AT THIS TIME.
[2020-01-22 05:12] VITALS: BP 97/59
[2020-01-22 05:18] LABS: ALBUMIN 4.6 g/dL (3.4-5.0); CALCIUM 10.2 mg/dL (8.5-10.1); CREATININE 5.2 mg/dL (0.6-1.0); PHOSPHORUS 4.5 mg/dL (2.5-4.9); POTASSIUM 4.2 mmol/L (3.5-5.1)
[2020-01-22 08:00] VITALS: BP 94/41
[2020-01-22 15:08] LABS: KAPPA FREE LIGHT CHAINS 139.2 mg/L (3.3-19.4); KAPPA/LAMBDA RATIO 4.92 (0.26-1.65); LAMBDA FREE LIGHT CHAINS 28.3 mg/L (5.7-26.3)
--- NOTE | 2020-01-22 15:53 | NUR ---
Casemgt cont following. Patient with worsening renal, 5N evaled and cont to follow.
[2020-01-22 16:00] VITALS: BP 119/68
--- NOTE | 2020-01-22 16:48 | NUR ---
ASSESSMENT CHARTED. PT ALERT AND ORIENTED. VSS. HAD GASTRIC EMPTY STUDY THIS AM. ON LASIX DRIP. APPETITE POOR. DR. ROSARIO AWARE. WILL CONTINUE TO MONITOR.
[2020-01-22 20:21] VITALS: BP 91/52
[2020-01-23] VITALS (8 sets, daily range): BP systolic 84–115; BP diastolic 46–64
--- NOTE | 2020-01-23 05:16 | NUR ---
ASSESSMENT DOCUMENTED.PT BEEN RESTING IN NO ACUTE DISTRESS.A/OX4.VSS.BLOOD PRESSURE REMAINS SOFT,PT ASYMPTOMATIC.LASIX DRIP PER ORDERS.AFIA DD.URINE OUTPUT 700.DIMINISHED FOOD APPETITE,LIKES ICECREAM AND CONSUMED 2 CUPS THIS SHIFT W/1/2 CAN OF [place] SODA,NO WATER INTAKE THIS SHIFT.TURNED AND REPOSITIONED Q2H.LIDOCAINE PATCH APPLIED TO LOWERBACK.PT DENIES ANY OTHER NEEDS.POC IS TO CONT W/TX.
--- NOTE | 2020-01-23 07:10 | HC ---
[facility] [place] [address] CONSULTATION Name: DIAMOND ARNDT Room #: 211-P ADM IN M.R.#: [id number] Admission: 01/11/20 Attend Phys: Humphrey Bonilla MD Discharge: Date of : 07/23/30 Report #: [id number] THIS REPORT FOR: cc: Vicki Jane MD,Vicki Cruz-Krys Ding MD ~ CC: Humphrey Jane REASON FOR CONSULTATION: Elevated creatinine. REASON FOR PRESENTATION: Shortness of breath. HISTORY OF PRESENT ILLNESS: An 89-year-old with past medical history of hypertension, hyperlipidemia, heart failure with an ejection fraction of around 40%. She presented reporting that she has been having nausea, vomiting, shortness of breath. She was found to be in an acute kidney injury. The patient was in our hospital back in October of this year and her creatinine had been in the normal range initially; however, had risen to as high as 2.4 back in 09/2019. When the patient presented to the hospital few days ago, she was found to have a creatinine of 2.8. This was thought to be due to diuresis. This was discontinued and her creatinine is beginning to improve. She did report poor oral intake with associated nausea and vomiting. No urinary symptoms. She is being ruled out for COVID-19. BUN presentation was high at 69. Chest x-ray was not suggestive of pulmonary edema; however, she does have significant chronic changes. PAST MEDICAL HISTORY: 1. Cardiomyopathy. 2. Coronary artery disease. 3. Hypothyroidism. 4. Atrial fibrillation. 5. Mitral regurgitation. ALLERGIES: No known allergies. PAST SURGICAL HISTORY: Spinal surgery. Left wrist surgery. MEDICATIONS: 1. Methimazole. 2. Carvedilol. 3. Torsemide. 4. Aldactone. SOCIAL HISTORY: She denies drug or alcohol abuse. FAMILY HISTORY: Significant for hypertension. [facility] [address] [place] [address] CONSULTATION Name: DIAMOND ARNDT Room #: 211-P [facility] ..#: [id number] Admission: 01/11/20 Attend Phys: Humphrey Bonilla MD Discharge: Date of : 07/23/[birth year] Report #: [id number] REVIEW OF SYSTEMS: GENERAL: Significant for weakness and malaise. CARDIOVASCULAR: As per the history of present illness. PULMONARY: As per the history of present illness. GASTROINTESTINAL: Poor oral intake. GENITOURINARY: No frequency, no urgency. MUSCULOSKELETAL: Chronic back pain. PHYSICAL EXAMINATION: GENERAL: She is alert, oriented, in no apparent distress. VITAL SIGNS: Blood pressure is 91/45, temperature is 35.4, pulse rate is 109. HEAD AND NECK: No jugular venous distention. CHEST: No crackles. CARDIOVASCULAR: No rub detected. ABDOMEN: Soft, nontender. EXTREMITIES: Lower extremities, no edema. LABORATORY DATA: Reviewed. Sodium is 133, was 129 on presentation. BUN is 66, creatinine is 2.4. Hemoglobin is 11.8. ASSESSMENT AND PLAN: 1. Acute kidney injury. 2. Chronic kidney disease. 3. Hyponatremia. 4. Heart failure with cardiomyopathy. 5. Atrial fibrillation. 6. Chronic dyspnea. 7. The patient's creatinine is improving. Her acute kidney injury was due to over diuresis and hypertension. 8. Continue to hold all diuretics. 9. Continue to hold all blood pressure medications. 10. Renal parameters are improving. She is being ruled out for COVID virus infection. No further renal recommendations. <ELECTRONICALLY SIGNED> By: Krys Vieira MD 01/23/20 0710 [id number] [id number] Krys Vieira MD /nt
[2020-01-23 08:25] LABS: CALCIUM 10.5 mg/dL (8.5-10.1); CREATININE 5.2 mg/dL (0.6-1.0); POTASSIUM 4.3 mmol/L (3.5-5.1)
[2020-01-23 08:29] LABS: ALBUMIN 5.7 g/dL (3.4-5.0); PHOSPHORUS 4.3 mg/dL (2.5-4.9)
[2020-01-23 11:08] LABS: GLOBULIN TOTAL 1.8 g/dL (2.2-3.9); M-SPIKE Not Observed g/dL (Not Observed)
[2020-01-23 12:07] LABS: ANA INTERPRETATION Negative (Negative)
[2020-01-23 13:08] LABS: ANTI-DNA SCREEN <1 IU/mL (0-9); ANTI-RNP <0.2 AI (0.0-0.9)
--- NOTE | 2020-01-23 15:48 | NUR ---
ASSUMED CARE PT SHIFT CHANGE. ASSESSMENT CHARTED. MEDS GIVEN PER DEC. PT ALERT AND ORIENTED.VSS. C/O BACK PAIN, DOES NOT WANT TYLENOL- PT REPOSITIONED WITH RELIEF. LASIX GTT CONTINUES. SWELLING IN LEGS AND FEET CONTINUES TO BE PRESENT. O2 SATS WNL ON ROOM AIR. BP LOW AT 87/47- PHYSICIAN NOTIFIED, ORDERS RECEIVED. DAUGHTER CALLED WANTING UPDATES AND WANTING TO SPEAK WITH PHYSICIANS- MANNIE NOTIFIED, DR NOLASCO NOTIFIED. REMAINS AFIB W/ BBB ON MONITOR. PT WORKED WITH PHYS THERAPY AND OT TOLERATING FAIR. APPETITE CONTINUES TO BE POOR. PT CURRENTLY RESTING IN BED WITH NO NEEDS AT THIS TIME. WILL CONT TO MONITOR AND FOLLOW POC.
[2020-01-24] VITALS (9 sets, daily range): BP systolic 93–103; BP diastolic 51–58
[2020-01-24 06:13] LABS: ALBUMIN 5.2 g/dL (3.4-5.0); CREATININE 4.9 mg/dL (0.6-1.0); PHOSPHORUS 3.8 mg/dL (2.5-4.9); POTASSIUM 3.5 mmol/L (3.5-5.1)
--- NOTE | 2020-01-24 08:12 | NUR ---
ASSESSMENTS CHARATED, MEDS CHARTED GIVEN. PATIENT RESTING IN BED DURING SHIFT. ALERT AND ORIENTED, OREILLY IN PLACE. UP WITH STANDBY ASSIST TO BSC. C/O CHRONIC BACK PAIN. UNABLE TO TURN SIDE TO SIDE BY HERSELF, NEEDS ASSIST TO Q2 TURN. THIS MORNING WHEN I WENT IN TO GIVE HER HER MORNING MEDS, SHE STATED SHE DID NOT WANT TO TAKE MEDS ANY MORE, SHE IS INTERESTED IN GOING ON HOSPICE CARE. SHE WANTS TO TALK TO HER ABOUT IT BEFORE SHE DOES IT FOR GOOD, BUT IS AFRAID SHE DOES NOT HAVE ENOUGH OXYGEN TO HAVE A CONVERSATION WITH HIM. PASSED MESSAGE TO DAY NURSE TO HAVE DOCTOR TALK WITH HER AND POSSIBLY HAVE DOCTOR TALK TO HER .
[2020-01-24] MEDS ORDERED: MSL20MG/ML SUBLING (11:15)
[2020-01-24] MEDS ORDERED: REGLAN 5 MG TAB5 MG PO (11:15)
[2020-01-24] MEDS ORDERED: PANTOPRAZOLE SO40 M1 PO (11:15)
[2020-01-24] MEDS ORDERED: ACETAMINOPHEN325 M1 PO (11:15)
[2020-01-24] MEDS ORDERED: MELATONIN5 M1 PO (11:15)
--- NOTE | 2020-01-24 14:27 | NUR ---
Consult rec'd for dc to home with hospice this afternoon. Manager Style spoke with the pt and her spouse via phone. Both in agreement with no agency preference. Pt's dtr [place]. Referral sent to [facility] and they can accept for admission at home around 5pm this evening. [facility] ambulance transport arranged for 4pm transport. [facility] to arrange for dme delievery of hospital bed, bsc,FWW and O2. Pt's spouse there to receive it this afternoon. Outside the hospital DNR form signed by the attending and nursing to have pt sign and present to [facility] for the ride home. Pt to be sent home with the orignia DNR form, DC summary and DC instructions. Dtr Alyx updated via phone on final arrangements. Pt and spouse aware that Hospice house is a potential option if needed as her spouse will be the primary cg. All parties updated. DC summary and instructions faxed to Hospice.
--- NOTE | 2020-01-24 17:15 | NUR ---
PT CARE ASSUMED 0700. PT ASSESMENTS CHARTED. PT MEDICATION CHARTED. PT HAS VERY POOR APPETITE. PT TO DISCHARGE HOME WITH HOSPICE. PT REFUSED ALL MEDICATIONS WITH THE EXCEPTION OF PAIN MEDICATIONS. PT TELE D/C'D. PT IV D/C'D. OREILLY REMAINS IN PLACE. CM AFFIRMS THAT HOSPICE EQUIPMENT IS AT PT'S HOME.
== END 2020-01-24 17:20 | disposition hospice, home (50) | DRG 682 ==
LOC: ER 11:53 → EROBS 13:50 → 3W 13:50 → 2N 13:50 → 3W 15:36 → 2N 01-14 14:02
PROVIDERS: Emergency Medicine; Hospitalist; Internal Medicine; Nurse Practitioner; Psychiatry & Neurology Neurology; ADMIT Internal Medicine
PROC: 0DB58ZX Excision of Esophagus, Via Natural or Artificial Opening Endoscopic, Diagnostic (ICD-10-PCS; principal; 2020-01-16)
DX: N17.0 Acute kidney failure with tubular necrosis (principal); E43 Unspecified severe protein-calorie malnutrition; K22.10 Ulcer of esophagus without bleeding; J84.9 Interstitial pulmonary disease, unspecified; I42.9 Cardiomyopathy, unspecified; E87.1 Hypo-osmolality and hyponatremia; I50.22 Chronic systolic (congestive) heart failure; I13.0 Hypertensive heart and chronic kidney disease with heart failure and stage 1 through stage 4 chronic kidney disease, or unspecified chronic kidney disease; N18.4 Chronic kidney disease, stage 4 (severe); K25.9 Gastric ulcer, unspecified as acute or chronic, without hemorrhage or perforation; K31.84 Gastroparesis; E03.9 Hypothyroidism, unspecified; E78.00 Pure hypercholesterolemia, unspecified; E78.5 Hyperlipidemia, unspecified; I48.91 Unspecified atrial fibrillation; R62.7 Adult failure to thrive; I25.10 Atherosclerotic heart disease of native coronary artery without angina pectoris; I08.0 Rheumatic disorders of both mitral and aortic valves; I95.9 Hypotension, unspecified; Z20.828 Contact with and (suspected) exposure to other viral communicable diseases; R63.4 Abnormal weight loss; M81.0 Age-related osteoporosis without current pathological fracture; R13.10 Dysphagia, unspecified; I48.0 Paroxysmal atrial fibrillation; Z66 Do not resuscitate; H53.2 Diplopia; D64.9 Anemia, unspecified; E86.0 Dehydration; M19.90 Unspecified osteoarthritis, unspecified site; K44.9 Diaphragmatic hernia without obstruction or gangrene; E04.1 Nontoxic single thyroid nodule; J43.9 Emphysema, unspecified; I25.2 Old myocardial infarction; Z68.25 Body mass index [BMI] 25.0-25.9, adult; Z82.49 Family history of ischemic heart disease and other diseases of the circulatory system
CPT/HCPCS: 10081; 10879; 62110; 62900; 70005